=== PATIENT | female | born 1985 | race Hispanic/Latino ===

== ENCOUNTER 2020-11-22 14:48 | Emergency (ER) | payer MEDICAID, OTHER ==
--- OUTSIDE RECORDS SUMMARY | 2020-11-22 14:52 | XMS REPORT | Continuity of Care Document ---
:[address] [facility] t Address [address] [place] [address] Care Team Providers Name Role Phone Durán Attending Clinician Unavailable Payers Payer Name Policy Type Policy Number Effective Date Expiration Date S kiya OTHER-COMMERC [id number] 2020 [facility] s - IALGENERIC 00:00:00 [facility] COMMERCIALxxx [id number] 21-Present Problems This patient has no known problems. Allergies, Adverse Reactions, Alerts This patient has no known allergies or adverse reactions. Social History Social Habit Start Date Stop Date Quantity Comments Source Sex Assigned At [facility] Medications This patient has no known medications. Vital Signs Vital Name Observation Time Observation Value Comments Source Body weight 2020-11-19 09:13:00 45.36 kg [facility] BMI 2020-11-19 09:13:00 23.24 kg/m2 [facility] Body height 2020-11-19 09:13:00 139.7 cm [facility] Procedures This patient has no known procedures. Results This patient has no known results.
--- NOTE | 2020-11-22 15:38 | RAD REPORT ---
EXAM DESCRIPTION: Jairon Single View11/22/2020 3:19 pm CLINICAL HISTORY: Shortness breath COMPARISON: none FINDINGS: The lungs appear clear of acute infiltrate. The heart is mildly to moderately enlarged. U pper lobe vessels are prominent indicative of pulmonary venous hypertension
[2020-11-22 15:42] LABS: Absolute Lymphocytes (CBC) 1.7 K/uL (0.7-4.9); Basophils % 0.9 % (0-1.3); Hematocrit 38.5 % (36.0-45.0); Lymphocytes % 12.1 % (15.3-44.8); MPV 7.3 fL (7.6-11.3); RBC Red Blood Cell Count 4.62 M/uL (3.86-4.86)
[2020-11-22 16:15] LABS: ALT/SGPT 44 U/L (12-78); AST/SGOT 27 U/L (15-37); Albumin 3.3 g/dL (3.4-5.0); Alkaline Phosphatase 96 U/L (45-117); BUN Blood Urea Nitrogen 15 mg/dL (7-18); Bicarbonate 30 mmol/L (21-32); Bilirubin Direct 0.2 mg/dL (0-0.2); Bilirubin Total 0.9 mg/dL (0.2-1.0); Glucose Level 79 mg/dL (74-106); Magnesium 2.2 mg/dL (1.8-2.4); NT PRO-BNP 61989 pg/mL (<125); Potassium 3.5 mmol/L (3.5-5.1); Protein, Total 7.2 g/dL (6.4-8.2); Sodium Level 138 mmol/L (136-145); Troponin (Emerg Dept Use Only) < 0.02 ng/mL (0.0-0.045)
--- NOTE | 2020-11-22 16:59 | ER ---
Nurse's Notes [facility] Name: Rose Marie Kimble Age: 35 yrs Sex: Female : 1985 Arrival Date: 11/22/2020 Time: 14:49 Bed 6 Private MD: Diagnosis: Shortness of breath-pre dialysis Presentation: 11/22 14:50 Chief complaint: EMS states: SHORTNESS OF BREATH BEFORE DILAYSIS. Coronavirus screen: bp At this time, the client does not indicate any symptoms associated with coronavirus-19. Ebola Screen: No symptoms or risks identified at this time. Initial Sepsis Screen: Does the patient meet any 2 criteria? No. Patient's initial sepsis screen is negative. Does the patient have a suspected source of infection? No. Patient's initial sepsis screen is negative. Risk Assessment: Do you want to hurt yourself or someone else? Patient reports no desire to harm self or others. Onset of symptoms was November 22, 2020 at 12:00. 14:50 Method Of Arrival: EMS: [facility] bp 14:50 Acuity: BHAVANA 3 bp Triage Assessment: 14:50 General: Appears in no apparent distress. comfortable, Behavior is calm, cooperative, bp appropriate for age. Pain: Denies pain. EENT: No deficits noted. Neuro: No deficits noted. Cardiovascular: No deficits noted. Respiratory: Reports shortness of breath Onset: The symptoms/episode began/occurred this morning, the patient reports symptoms have resolved. GI: No signs and/or symptoms were reported involving the gastrointestinal system. : No signs and/or symptoms were reported regarding the genitourinary system. Derm: No deficits noted. Musculoskeletal: No deficits noted. Historical: - Allergies: 14:50 No Known Allergies; bp - PMHx: 14:50 CAD; Renal Disease; bp - Immunization history:: Adult Immunizations up to date. - Social history:: Smoking status: Patient denies any tobacco usage or history of. Screenin:50 Abuse screen: Denies threats or abuse. Denies injuries from another. Nutritional bp screening: No deficits noted. Tuberculosis screening: No symptoms or risk factors identified. Fall Risk None identified. Assessment: 14:50 General: SEE TRIAGE NOTE. bp 16:00 Reassessment: ALL CURRENT ORDERS COMPLETED, RESULTS PENDING. Cardiovascular: Rhythm is bp sinus rhythm. Respiratory: Airway is patent Respiratory effort is even, unlabored, Breath sounds are clear bilaterally. 17:28 Reassessment: PT D/C HOME AMBULATORY, DX WITH SOB BEFORE DIALYSIS. bp Vital Signs: 14:50 BP 129 / 81; Pulse 95; Resp 16; Temp 97; Pulse Ox 99% ; bp 16:00 BP 130 / 87; Pulse 84; Resp 20; Pulse Ox 98% ; bp 17:27 BP 134 / 82; Pulse 79; Resp 20; Temp 98; Pulse Ox 97% ; bp ED Course: 14:49 Patient arrived in ED. bp 14:50 Jerry Riggins, RN is Primary Nurse. bp 14:50 Jose Armando Adamson PA is PHCP. cp 14:50 Laureano Brantley MD is Attending Physician. cp 14:50 Arm band placed on. bp 14:50 Patient has correct armband on for positive identification. Bed in low position. Call bp light in reach. Side rails up X2. 15:02 Triage completed. bp 15:19 XRAY Chest (1 view) In Process Unspecified. EDMS 15:33 Magnesium Sent. mh5 15:33 NT PRO-BNP Sent. mh5 15:33 Troponin (Emerg Dept Use Only) Sent. mh5 15:33 Liver (Hepatic) Function Sent. mh5 15:33 CBC with Automated Diff Sent. mh5 15:33 Basic Metabolic Panel Sent. mh5 15:33 Test, Serum Sent. mh5 15:34 Basic Metabolic Panel Sent. mh5 15:34 CBC with Diff Sent. mh5 15:34 LFT's Sent. mh5 15:34 Magnesium Sent. mh5 15:34 NT PRO-BNP Sent. mh5 15:34 Troponin (emerg Dept Use Only) Sent. mh5 15:35 Warm blanket given. Pulse ox on. NIBP on. mh5 15:35 Initial lab(s) drawn, by me, sent to lab. EKG done, by ED staff, reviewed by Laureano Brantley MD COVID swab sent to lab. 17:28 No provider procedures requiring assistance completed. IV discontinued, intact, bp bleeding controlled, No redness/swelling at site. Pressure dressing applied. Administered Medications: No medications were administered Outcome: 16:58 Discharge ordered by . cp 17:28 Discharged to home ambulatory. bp 17:28 Condition: stable 17:28 Discharge instructions given to patient, Instructed on discharge instructions, follow up and referral plans. Demonstrated understanding of instructions, follow-up care. 17:29 Patient left the ED. bp Signatures: Dispatcher [employer] EDMS Jose Armando Adamson PA PA cp Martinez, Maria [facility] Jerry Riggins, RN RN bp
--- NOTE | 2020-11-22 16:59 | EDPHYS ---
Physician Documentation [facility] Name: Rose Marie Kimble Age: 35 yrs Sex: Female : 1985 Arrival Date: 11/22/2020 Time: 14:49 Bed 6 Private MD: ED Physician Laureano Brantley HPI: 11/22 14:50 This 35 yrs old Female presents to ER via Unassigned with complaints of cp Shortness Of Breath. 14:50 The patient has shortness of breath at rest. cp 14:50 Onset: The symptoms/episode began/occurred today, prior to having dialysis. Patient cp unsure of amount of fluid removed but reports shortness of breath improved after dialysis. Associated signs and symptoms: Pertinent positives: chest pain, Pertinent negatives: non-productive cough, productive cough, fever, vomiting. Severity of symptoms: in the emergency department the symptoms have improved markedly. Historical: - Allergies: 14:50 No Known Allergies; bp - PMHx: 14:50 CAD; Renal Disease; bp - Immunization history:: Adult Immunizations up to date. - Social history:: Smoking status: Patient denies any tobacco usage or history of. ROS: 15:00 Constitutional: Negative for body aches, chills, fever, poor PO intake. cp 15:00 Eyes: Negative for injury, pain, redness, and discharge. cp 15:00 ENT: Negative for ear pain, sore throat, difficulty swallowing, difficulty handling cp secretions. 15:00 Cardiovascular: Positive for chest pain, Negative for edema, palpitations. 15:00 Respiratory: Positive for history of shortness of breath, Negative for cough, wheezing. 15:00 Abdomen/GI: Negative for abdominal pain, nausea, vomiting, and diarrhea. 15:00 Back: Negative for pain at rest, pain with movement. 15:00 All other systems are negative. cp Exam: 15:05 Head/Face: Normocephalic, atraumatic. cp 15:05 Constitutional: The patient appears in no acute distress, alert, awake, non-diaphoretic, non-toxic, well developed, well nourished. 15:05 Eyes: Periorbital structures: appear normal, Conjunctiva: normal, no exudate, no injection, Sclera: no appreciated abnormality, Lids and lashes: appear normal, bilaterally. 15:05 ENT: External ear(s): are unremarkable, Nose: is normal, Mouth: Lips: moist, Oral mucosa: moist, Posterior pharynx: Airway: no evidence of obstruction, patent. 15:05 Chest/axilla: Inspection: normal, Palpation: crepitus, is not appreciated, tenderness, that is mild, of the mid-sternal area. 15:05 Cardiovascular: Rate: normal, Rhythm: regular, Edema: is not appreciated, JVD: is not appreciated. 15:05 Respiratory: the patient does not display signs of respiratory distress, Respirations: normal, no use of accessory muscles, no retractions, labored breathing, is not present, Breath sounds: are clear throughout, no decreased breath sounds, no stridor, no wheezing. 15:05 Abdomen/GI: Exam negative for discomfort, distension, guarding, Inspection: abdomen appears normal. 15:05 Neuro: Orientation: to person, place \T\ time. Mentation: is normal. Vital Signs: 14:50 BP 129 / 81; Pulse 95; Resp 16; Temp 97; Pulse Ox 99% ; bp 16:00 BP 130 / 87; Pulse 84; Resp 20; Pulse Ox 98% ; bp 17:27 BP 134 / 82; Pulse 79; Resp 20; Temp 98; Pulse Ox 97% ; bp MDM: 14:55 Patient medically screened. cp 15:00 Differential diagnosis: CHF exacerbation, Myocardial Infarction pneumonia, Pneumothorax cp pulmonary edema, Pulmonary Embolism Unstable Angina. 16:55 Data reviewed: vital signs, nurses notes, lab test result(s), EKG, radiologic studies, cp plain films. 16:55 Test interpretation: by ED physician or midlevel provider: ECG. Counseling: I had a cp detailed discussion with the patient and/or guardian regarding: the historical points, exam findings, and any diagnostic results supporting the discharge/admit diagnosis, lab results, radiology results, to return to the emergency department if symptoms worsen or persist or if there are any questions or concerns that arise at home. 11/22 14:53 Order name: Basic Metabolic Panel cp 11/22 14:53 Order name: CBC with Diff cp 11/22 14:53 Order name: LFT's cp 11/22 14:53 Order name: Magnesium cp 11/22 14:53 Order name: NT PRO-BNP cp 11/22 14:53 Order name: Troponin (emerg Dept Use Only) cp 11/22 14:53 Order name: Test, Serum; Complete Time: 16:01 cp 11/22 14:54 Order name: Basic Metabolic Panel; Complete Time: 16:51 EDMS 11/22 16:51 Interpretation: Normal except: CRE 2.96; GFR 18. cp 11/22 14:54 Order name: CBC with Automated Diff; Complete Time: 16:01 EDMS 11/22 16:01 Interpretation: Normal except: WBC 13.90; RDW 15.3; MPV 7.3; SIERRA% 81.1; LYM% 12.1; NEUT cp A 11.3. 11/22 14:54 Order name: Liver (Hepatic) Function; Complete Time: 16:51 EDMS 11/22 16:51 Interpretation: Normal except: ALB 3.3; GLOB 3.9; A/G 0.8. cp 11/22 14:54 Order name: Magnesium; Complete Time: 16:51 EDMS 11/22 14:54 Order name: NT PRO-BNP; Complete Time: 16:51 EDMS 11/22 16:52 Interpretation: Abnormal: NT PRO-BNP [id number]. cp 11/22 14:54 Order name: Troponin (Emerg Dept Use Only); Complete Time: 16:51 EDMS 11/22 16:52 Interpretation: TROPED < 0.02; Reviewed. cp 11/22 14:53 Order name: XRAY Chest (1 view); Complete Time: 16:01 cp 11/22 16:02 Interpretation: Report reviewed. cp 11/22 14:53 Order name: EKG; Complete Time: 14:55 cp 11/22 14:53 Order name: Cardiac monitoring; Complete Time: 15:17 cp 11/22 14:53 Order name: EKG - Nurse/Tech; Complete Time: 15:34 cp 11/22 14:53 Order name: IV Saline Lock; Complete Time: 15:33 cp 11/22 14:53 Order name: Labs collected and sent; Complete Time: 15:33 cp 11/22 14:53 Order name: O2 Per Protocol; Complete Time: 15:29 cp 11/22 14:53 Order name: O2 Sat Monitoring; Complete Time: 15:29 cp 11/22 16:09 Order name: SARS-COV-2 RT PCR; Complete Time: 16:51 EDMS Administered Medications: No medications were administered Disposition: 11/22/20 16:58 Discharged to Home. Impression: Shortness of breath - pre dialysis. - Condition is Stable. - Discharge Instructions: Shortness of Breath, Dialysis, Dialysis Diet. - Medication Reconciliation Form, Thank You Letter, Antibiotic Education, Prescription Opioid Use form. - Follow up: Private Physician; When: 1 - 2 days; Reason: Recheck today's complaints. - Problem is new. - Symptoms have improved. Addendum: 11/23/2020 18:43 Co-signature as Attending Physician, Laureano Brantley MD. m a2 Signatures: Dispatcher [employer] EDNC Jose Armando Adamson PA PA cp Peltier, Brian, RN RN Laureano Cerrato MD MD ma2 Corrections: (The following items were deleted from the chart) 11/22 15:20 14:55 CORONAVIRUS+.LIZZ ordered. EDNC EDMS 17:29 16:58 11/22/2020 16:58 Discharged to Home. Impression: Shortness of breath - pre bp dialysis. Condition is Stable. Forms are Medication Reconciliation Form, Thank You Letter, Antibiotic Education, Prescription Opioid Use. Follow up: Private Physician; When: 1 - 2 days; Reason: Recheck today's complaints. Problem is new. Symptoms have improved. cp
[2020-11-22 20:12] VITALS: BP 134/82; TEMP 98; O2SAT 97
== END 2020-11-22 17:29 | disposition home or self-care (01) ==
LOC: ER 14:48
DX: R06.02 Shortness of breath (principal); Z20.822 Contact with and (suspected) exposure to COVID-19; I25.10 Atherosclerotic heart disease of native coronary artery without angina pectoris; N18.6 End stage renal disease; Z99.2 Dependence on renal dialysis
CPT/HCPCS: 85025; 80048; 36415; 83735; 84703; 80076; 84484; 83880; 71045; U0003; 99284

== ENCOUNTER 2020-12-02 11:16 | Inpatient (IN) | payer MEDICAID ==
--- OUTSIDE RECORDS SUMMARY | 2020-12-02 11:19 | XMS REPORT | Continuity of Care Document ---
:1985 Author Organization [facility] t Address [address] [place] [address] Care Team Providers Name Role Phone 1, Infusion Nurse Attending Clinician Unavailable Durán Attending Clinician Unavailable Payers Payer Name Policy Type Policy Number Effective Date Expiration Date S kiya OTHER-COMMERC [id number] 2020 [facility] s - IALGENERIC 00:00:00 [facility] COMMERCIALxxx [id number]/ 21-Present Problems This patient has no known problems. Allergies, Adverse Reactions, Alerts This patient has no known allergies or adverse reactions. Social History Social Habit Start Date Stop Date Quantity Comments Source Sex Assigned At [facility] Medications This patient has no known medications. Vital Signs Vital Name Observation Time Observation Value Comments Source BMI 2020-11-19 09:13:00 23.24 kg/m2 [facility] Body height 2020-11-19 09:13:00 139.7 cm [facility] Body weight 2020-11-19 09:13:00 45.36 kg [facility] Procedures This patient has no known procedures. Encounters Start End Encounter Admission Attending Care Care Encounter Source Date/Time Date/Time Type Type Clinicians Facility Department ID 2020-11-28 2020-11-28 Nurse Sindhu Alonzo [facility] [id number] 14:42:00 14:57:00 Visit Infusion [place] [id number] Nurse Jones [id number] Surgical [id number] Center 053 Results This patient has no known results.
--- NOTE | 2020-12-02 11:51 | RAD REPORT ---
EXAM DESCRIPTION: RAD - Chest Single View - 12/02/2020 11:45 am CLINICAL HISTORY: Dyspnea;Cough Chest pain. COMPARISON: Chest Single View dated 11/22/2020 FINDINGS: Portable technique limits examination quality. Moderate bilateral pulmonary opacities are present which may represent pulmonary edema or be related to infection. The heart is moderately enlarged. Right-sided dialysis catheter its tip in right atrium . IMPRESSION: Moderate volume overload/CHF pattern is suspected.
[2020-12-02 12:09] LABS: Absolute Lymphocytes (CBC) 0.9 K/uL (0.7-4.9); Basophils % 0.8 % (0-1.3); Hematocrit 40.9 % (36.0-45.0); MPV 8.6 fL (7.6-11.3); RBC Red Blood Cell Count 4.79 M/uL (3.86-4.86)
[2020-12-02 12:24] LABS: Potassium 5.7 mmol/L (3.5-5.1)
[2020-12-02] MEDS ORDERED: ACETAMINOPHEN 500 MG TAB ONE (12:33)
[2020-12-02 12:49] LABS: SARS-COV-2 RT PCR NEGATIVE (NEGATIVE)
[2020-12-02] MEDS ORDERED: FUROSEMIDE 40 MG/4 ML VIAL ONE (12:54)
[2020-12-02] MEDS ORDERED: FUROSEMIDE 20 MG/ 2ML VIAL ONE (12:54)
[2020-12-02 13:03] LABS: Blood Morphology Comment NOT SEEN (NOT SEEN); Platelet Estimate ADEQ; Platelets, Giant PRESENT; White Blood Cell Scan OK (OK)
[2020-12-02] MEDS ORDERED: levoFLOXacin 750 MG TAB PO ONE (13:53)
--- NOTE | 2020-12-02 13:54 | P.HP ---
Certification for Inpatient Patient admitted to: Observation With expected LOS: <2 Midnights Practitioner: I am a practitioner with admitting privileges, knowledge of patient current condition, hospital course, and medical plan of care. Services: Services provided to patient in accordance with Admission requirements found in Title 42 Section 412.3 of the Code of Federal Regulations Patient History Date of Service: 12/02/20 Reason for admission: hypoxic respiratory failure History of Present Illness: 35-year-old female, PMH: ESRD on HD (T-R-S) s/p renal transplant, DM 2-insulin dependent, HTN who presents to ED from dialysis center due to a shortness of breath and hypoxia at 82% on room air. Patient states this is not typical for her. This is the 2nd episode. 1st episode was approximately 2 weeks ago, but oxygenation improved after dialysis and was noted to have SpO2 100% on arrival to the ED at that time. She denies any swelling in her legs. She reports feeling like a Ball is in the lower left part of her chest/stomach area does not allowing her to take deep breaths. She also reports some mild cough that began yesterday. She denies missing any of her dialysis recently. Denies any fevers/chills, no nausea/vomiting, no diarrhea. - Past Medical/Surgical History -: ESRD on HD -: s/p renal transplant -: Insulin dependent DM2 -: HTN -: Renal transplant - Family History Mother -: Diabetes - Social History Smoking Status: Never smoker Alcohol use: No Place of Residence: Home Review of Systems 10-point ROS is otherwise unremarkable Physical Examination - Studies Laboratory Data (last 24 hrs) 12/02/20 11:48: Sodium 140, Potassium 5.7 H*, BUN 70 H D, Creatinine 9.95 H* D, Glucose 75 12/02/20 11:48: WBC 14.40 H, Hgb 12.8, Hct 40.9, Plt Count 375 D Assessment and Plan - Advance Directives Does patient have a Living Will: No Does patient have a Durable POA for Healthcare: No Physician Review Additional Text: Physical exam General: NAD, resting comfortably on stretcher HEENT: Normal conjunctiva, sclera anicteric Pulmonary: Diminished breath sounds bilaterally at bases with crackles. Nonlabored on 3L NC CV: RRR, no murmur, rub, gallop, no edema Abd: soft, NTND, normoactive bowel sounds Ext: no edema, no rash, no lesions Neuro: AAOx3, b/l str 5/5 in upper/lower extremities Problem List Acute hypoxemic respiratory failure secondary to volume overload Possible acute CHF versus volume overload in the setting of ESRD ESRD on HD (T-R-S), s/p renal transplant DM 2, insulin dependent. HTN -CXR in the ED consistent with volume overload pattern, possible pneumonia unclear -mild leukocytosis, reportedly with a cough -hypoxia possibly due to volume overload versus pneumonia, COVID negative -cover empirically for community-acquired pneumonia, obtain CT chest to further evaluate, pro calcitonin ordered as well -patient reports is feeling of people/pressure in the bottom left chest/upper abdomen area, will trend troponin -insulin sliding scale, -obtain home medications and resume as appropriate -nephrology-Dr. Benson, consulted, patient for hemodialysis today -echocardiogram ordered VTE: heparin Code: full Dispo: anticipate dc home in ~24-48hrs pending evaluation and improvement of symptoms Time Spent Managing Pts Care (In Minutes): 60
--- NOTE | 2020-12-02 14:54 | RAD REPORT ---
EXAM DESCRIPTION: CT - Thorax Wo Con - 12/02/2020 2:32 pm CLINICAL HISTORY: eval b/l opacities - infectious vs edema COMPARISON: No comparisons TECHNIQUE: Axial 5 mm thick images of the chest were obtained without IV contrast. All CT scans are performed using dose optimization technique as appropriate and may include automated exposure control or mA/KV adjustment according to patient size. FINDINGS: Extensive ground-glass airspace opacification is present throughout both lower lobes, righ t middle lobe and the lingula of the left upper lobe. Only minimal ground-glass opacities are present in the upper lobes. A 7 mm nodular focus of the right upper lobe (image 22/55) is most likely part o f the same process rather than a nodule. There is a 5 mm left upper lobe nodule (image 11/55) the cou ld be a true nodule or focus of alveolar acute opacification. Small bilateral pleural effusions are p resent. Minimal fluid along the major fissures. No pneumothorax. A few nonspecific mediastinal and hilar masses are present. There is edema of the mediastinal fat. Di alysis catheter is in place extending into the right atrium. No gross aortic or pulmonary artery find ing suspected. Cardiomegaly is present. No pericardial effusion. No chest wall mass or abnormal axillary lymphadenopathy. IMPRESSION: Extensive airspace opacification in the lung yee along with small bilateral pleural e ffusions and a mild cardiomegaly. Findings most likely represent edema from volume overload. Two small upper lung field nodular foci detailed above are likely part of the same volume overload pr ocess. Follow-up CT can be performed when the patient has fully recovered from volume overload status . Right-sided dialysis catheter is in place with the catheter tips positioned in the right atrium.
--- NOTE | 2020-12-02 16:21 | EDPHYS ---
Physician Documentation [facility] Name: Rose Marie Kimble Age: 35 yrs Sex: Female : 1985 Arrival Date: 12/02/2020 Time: 11:19 Bed 5 Private MD: ED Physician Kofi Smart HPI: 12/02 12:51 This 35 yrs old Female presents to ER via EMS with complaints of Shortness Of kb Breath. 12:51 The patient has shortness of breath at rest. Onset: The symptoms/episode began/occurred kb yesterday, and became worse. Severity of symptoms: At their worst the symptoms were moderate in the emergency department the symptoms are unchanged. The patient has experienced similar episodes in the past, several times. The patient has not recently seen a physician. 12:53 Duration: The symptoms are continuous. The patient's shortness of breath is aggravated kb by exertion, is alleviated by application of supplemental oxygen. Associated signs and symptoms: Pertinent positives: non-productive cough, Pertinent negatives: fever. Pt reports cough that started yesterday, shortness of breath that started this morning. Denies fever. Did not received dialysis today as scheduled. 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 - Social history:: Smoking status: unknown. ROS: 12:57 Constitutional: Negative for fever, chills, and weight loss, Cardiovascular: Negative kb for chest pain, palpitations, and edema, Abdomen/GI: Negative for abdominal pain, nausea, vomiting, diarrhea, and constipation, MS/Extremity: Negative for injury and deformity, Skin: Negative for injury, rash, and discoloration, Neuro: Negative for headache, weakness, numbness, tingling, and seizure. 12:57 Respiratory: Positive for cough, dyspnea on exertion, shortness of breath. Exam: 12:57 Constitutional: This is a well developed, well nourished patient who is awake, alert, kb and in no acute distress. Head/Face: Normocephalic, atraumatic. Cardiovascular: Regular rate and rhythm with a normal S1 and S2. No gallops, murmurs, or rubs. No pulse deficits. Abdomen/GI: Soft, non-tender. No distention Skin: Warm, dry with normal turgor. Normal color. MS/ Extremity: Pulses equal, no cyanosis. Neurovascular intact. Full, normal range of motion. Neuro: Awake and alert, GCS 15, oriented to person, place, time, and situation. Moves all extremities. Normal gait. 12:57 Respiratory: moderate respiratory distress is noted, Respirations: labored breathing, Breath sounds: decreased breath sounds, that are mild, are located in both bases, rhonchi, that are mild, are located in both bases. 13:00 ECG was reviewed by the Attending Physician. kb Vital Signs: 11:25 BP 164 / 121; Pulse 91; Resp 23; Temp 98.8; Pulse Ox 100% 2 lpm ; Weight 44.45 kg; jl7 Height 4 ft. 7 in. (139.70 cm); Pain 0/10; 12:52 BP 191 / 115; Pulse 84; Resp 21 S; Pulse Ox 100% on 4 lpm NC; jd3 13:08 BP 189 / 109; Pulse 86; Resp 24; Pulse Ox 100% on 4 lpm NC; jl7 14:12 BP 178 / 108; Pulse 87; Resp 23 S; Pulse Ox 100% on 4 lpm NC; jd3 16:18 BP 167 / 96; Pulse 82; Resp 22 S; Pulse Ox 100% on 3 lpm NC; jd3 11:25 Body Mass Index 22.78 (44.45 kg, 139.70 cm) jl7 MDM: 11:23 Patient medically screened. kb 12:49 Data reviewed: vital signs, nurses notes. Data interpreted: Pulse oximetry: on room air kb is 84 %. Interpretation: hypoxia. Plan: O2 by NC applied. Counseling: I had a detailed discussion with the patient and/or guardian regarding: the historical points, exam findings, and any diagnostic results supporting the discharge/admit diagnosis, lab results, radiology results, the need for further work-up and treatment in the hospital. ED course: oxygen increased to 98% with 4l o2 via nc. 12:54 Physician consultation: Rob Guerrero MD was contacted at 12:55, regarding admission, kb to the telemetry unit. patient's condition, and will see patient in ED, shortly. 12:55 ED course: Dr Benson consulted. She will set up for inpatient dialysis today. kb 12/02 11:25 Order name: CBC with Diff; Complete Time: 13:07 kb 12/02 11:25 Order name: Basic Metabolic Panel; Complete Time: 12:26 kb 12/02 12:20 Order name: CBC Smear Scan; Complete Time: 13:07 EDMS 12/02 12:49 Order name: COVID-19/FLU A+B; Complete Time: 12:58 EDMS 12/02 11:25 Order name: Chest Single View XRAY; Complete Time: 11:56 kb 12/02 13:52 Order name: NT PRO-BNP EDRI 12/02 13:52 Order name: Blood Culture EDRI 12/02 13:52 Order name: C-Reactive Protein; Complete Time: 14:49 EDMS 12/02 13:52 Order name: Procalcitonin; Complete Time: 16:15 EDRI 12/02 14:55 Order name: CT; Complete Time: 14:57 EDRI 12/02 11:25 Order name: IV Start; Complete Time: 11:52 kb 12/02 12:29 Order name: EKG; Complete Time: 12:30 kb 12/02 12:29 Order name: EKG - Nurse/Tech; Complete Time: 12:51 kb 12/02 13:50 Order name: CONS Physician Consult EDMS EC:00 Rate is 85 beats/min. Rhythm is regular. QRS [place] is Normal. GA interval is normal at kb 162 msec. QRS interval is normal at 68 msec. QT interval is normal at 376 msec. Administered Medications: 12:20 Drug: Tylenol 1000 mg Route: PO; jd3 13:00 Follow up: Response: No adverse reaction jd3 12:27 CANCELLED (Physician Discretion): Potassium Chloride 40 mEq PO once kb 12:51 Drug: Lasix (furosemide) 60 mg Route: IVP; Site: right antecubital; jd3 13:50 Follow up: Response: No adverse reaction jd3 Disposition: 17:46 Co-signature as Attending Physician, Kofi Smart MD I agree with the assessment and kdr plan of care. Disposition: 12/02/20 12:59 Hospitalization ordered by Rob Guerrero for Observation. Preliminary diagnosis are Pulmonary edema - volume overload, Hyperkalemia. - Bed requested for Telemetry/MedSurg (observation). - Status is Observation. jd3 - Condition is Fair. - Problem is an acute exacerbation. - Symptoms are unchanged. Signatures: Dispatcher [employer] EDMS Karen Whitehead, GO-C ITEM REPAIR MANAGER-Xin Hwang, RN RN Kofi Monroy MD MD [facility] Belen Delgado RN RN jl7 Seven Ellsworth RN RN jd3 Corrections: (The following items were deleted from the chart) 12:02 11:25 CORONAVIRUS+MR.LAB.BRZ ordered. EDMS EDMS 12:02 11:25 Influenza Screen (A \T\ B)+BA.LAB.BRZ ordered. EDRI EDMS 12:27 12:26 Potassium Chloride 40 mEq PO once ordered. kb kb 15:05 12:59 Hospitalization Ordered by Rob Guerrero MD for Observation. Preliminary dw diagnosis is Pulmonary edema - volume overload; Hyperkalemia. Bed requested for Telemetry/MedSurg (observation). Status is Observation. Condition is Fair. Problem is an acute exacerbation. Symptoms are unchanged. kb 16:20 15:05 12/02/2020 12:59 Hospitalization Ordered by Rob Guerrero MD for Observation. jd3 Preliminary diagnosis is Pulmonary edema - volume overload; Hyperkalemia. Bed requested for Telemetry/MedSurg (observation). Status is Observation. Condition is Fair. Problem is an acute exacerbation. Symptoms are unchanged. dw
--- NOTE | 2020-12-02 16:21 | ER ---
Nurse's Notes [facility] Name: Rose Marie Kimble Age: 35 yrs Sex: Female : 1985 Arrival Date: 12/02/2020 Time: 11:19 Bed 5 Private MD: Diagnosis: Pulmonary edema-volume overload;Hyperkalemia Presentation: 12/02 11:25 Chief complaint: EMS states: Toned out to [facility] for SOB, started today, dry cough jl7 since yesterday, last dialysis was Tuesday, no dialysis today. Pt reports BP is baseline prior to dialysis. Coronavirus screen: Client denies travel out of the [place] in the last 14 days. cough unrelated to allergies, shortness of breath, Client presents with at least one sign or symptom that may indicate coronavirus-19. Standard/surgical mask placed on the client. Provider contacted for isolation considerations. Ebola Screen: No symptoms or risks identified at this time. Initial Sepsis Screen: Does the patient meet any 2 criteria? RR > 20 per min. HR > 90 bpm. Does the patient have a suspected source of infection? No. Patient's initial sepsis screen is negative. Risk Assessment: Do you want to hurt yourself or someone else? Patient reports no desire to harm self or others. Onset of symptoms was December 02, 2020. Care prior to arrival: None. Transition of care: patient was received from another setting of care (ambulatory specialty care practice), [facility]. 11:25 Method Of Arrival: EMS: [facility] jl7 11:25 Acuity: BHAVANA 3 jl7 Triage Assessment: 11:55 Respiratory: Onset: The symptoms/episode began/occurred gradually, the patient has jd3 moderate shortness of breath. 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 N/A - Depo-provera jd3 Historical: - Allergies: 11:53 No Known Allergies; jd3 11:54 No Known Allergies; jl7 - Home Meds: 12:22 amlodipine 10 mg tab 1 tab once daily [Active]; gabapentin 100 mg oral cap [Active]; jl7 Auryxia oral oral [Active]; Kayexalate Oral powd 60 mL 2 times per day [Active]; Lantus Sub-Q [Active]; Lasix Oral [Active]; Sensipar oral oral [Active]; metoprolol tartrate 100 mg Oral tab [Active]; clonidine HCl 0.1 mg Oral tab [Active]; - PMHx: 11:53 CAD; Renal Disease; jd3 11:54 CAD; Renal Disease; Dialysis; T-T-S; Diabetes - IDDM; jl7 12:22 hyperparathyroidism; jl7 - Immunization history:: Adult Immunizations up to date. - Social history:: Smoking status: unknown. Screenin:55 Abuse screen: Denies threats or abuse. Nutritional screening: No deficits noted. jd3 Tuberculosis screening: No symptoms or risk factors identified. Fall Risk Ambulatory Aid- None/Bed Rest/Nurse Assist (0 pts). Gait- Normal/Bed Rest/Wheelchair (0 pts) Mental Status- Oriented to own ability (0 pts). Total Guy Fall Scale indicates No Risk (0-24 pts). Assessment: 11:54 General: Appears in no apparent distress. comfortable, Behavior is calm, cooperative, jd3 appropriate for age. Pain: Complains of pain in head Quality of pain is described as aching. Neuro: Level of Consciousness is awake, alert, obeys commands, Oriented to person, place, time, situation. Cardiovascular: Denies chest pain, Capillary refill < 3 seconds Patient's skin is warm and dry. Rhythm is regular. Respiratory: Reports shortness of breath at rest cough that is non-productive, persistent Airway is patent Respiratory effort is even, unlabored, Respiratory pattern is symmetrical, tachypnea Breath sounds are diminished bilaterally. GI: No signs and/or symptoms were reported involving the gastrointestinal system. : No signs and/or symptoms were reported regarding the genitourinary system. EENT: No signs and/or symptoms were reported regarding the EENT system. Derm: Skin is intact, Skin is dry, Skin is normal, Skin temperature is warm. Musculoskeletal: Circulation, motion, and sensation intact. Range of motion: intact in all extremities. 12:52 Reassessment: Patient appears in no apparent distress at this time. Patient and/or jd3 family updated on plan of care and expected duration. Pain level reassessed. Patient is alert, oriented x 3, equal unlabored respirations, skin warm/dry/pink. Patient states feeling better. 14:12 Reassessment: Patient appears in no apparent distress at this time. Patient and/or jd3 family updated on plan of care and expected duration. Pain level reassessed. Patient is alert, oriented x 3, equal unlabored respirations, skin warm/dry/pink. awaiting admission. 16:03 Reassessment: Pt ambulated to bathroom with steady gate. jl7 16:17 Reassessment: Patient appears in no apparent distress at this time. Patient and/or jd3 family updated on plan of care and expected duration. Pain level reassessed. Patient is alert, oriented x 3, equal unlabored respirations, skin warm/dry/pink. report given to Leticia ASKEW. report given to dialysis nurse. pt to dialysis with printer technician. pt to floor after dialysis. Patient states feeling better. Vital Signs: 11:25 BP 164 / 121; Pulse 91; Resp 23; Temp 98.8; Pulse Ox 100% 2 lpm ; Weight 44.45 kg; jl7 Height 4 ft. 7 in. (139.70 cm); Pain 0/10; 12:52 BP 191 / 115; Pulse 84; Resp 21 S; Pulse Ox 100% on 4 lpm NC; jd3 13:08 BP 189 / 109; Pulse 86; Resp 24; Pulse Ox 100% on 4 lpm NC; jl7 14:12 BP 178 / 108; Pulse 87; Resp 23 S; Pulse Ox 100% on 4 lpm NC; jd3 16:18 BP 167 / 96; Pulse 82; Resp 22 S; Pulse Ox 100% on 3 lpm NC; jd3 11:25 Body Mass Index 22.78 (44.45 kg, 139.70 cm) jl7 ED Course: 11:19 Patient arrived in ED. aa5 11:23 Karen Whitehead FNP-C [facility]. kb 11:23 Kofi Smart MD is Attending Physician. kb 11:28 Triage completed. jl7 11:35 Seven Ellsworth RN is Primary Nurse. jd3 11:44 Chest Single View XRAY In Process Unspecified. EDMS 11:53 Arm band placed on. jd3 11:54 Inserted saline lock: 20 gauge in right antecubital area, using aseptic technique. jd3 Blood collected. 11:55 Patient has correct armband on for positive identification. Placed in gown. Bed in low jd3 position. Call light in reach. Side rails up X2. phototypesetting equipment monitor on. Pulse ox on. NIBP on. 12:59 Guerrero, Juvencio, MD is Hospitalizing Provider. kb 12:59 Rob Guerrero MD is Hospitalizing Provider. kb 16:18 No provider procedures requiring assistance completed. Patient admitted, IV remains in jd3 place. Administered Medications: 12:20 Drug: Tylenol 1000 mg Route: PO; jd3 13:00 Follow up: Response: No adverse reaction jd3 12:27 CANCELLED (Physician Discretion): Potassium Chloride 40 mEq PO once kb 12:51 Drug: Lasix (furosemide) 60 mg Route: IVP; Site: right antecubital; jd3 13:50 Follow up: Response: No adverse reaction jd3 Outcome: 12:59 Decision to Hospitalize by Provider. kb 16:19 Admitted to accompanied by tech, via wheelchair, with oxygen, with chart, Report called jd3 to pt to dialysis. then from dialysis to 428 16:19 Condition: stable 16:19 Instructed on the need for admit, Demonstrated understanding of instructions. 16:20 Patient left the ED. jd3 Signatures: Dispatcher [employer] EDMS Karen Whitehead, ALLIANCES CONSULTANT-C ALLIANCES CONSULTANT-Michelle Rouse, RN RN aa5 Belen Delgado RN RN jl7 Seven Ellsworth RN RN jd3
[2020-12-02] MEDS: INSULIN -REGULAR HUMAN 50 UNIT/0.5 ML ML SQ SCH ×2 (16:56→21:00)
[2020-12-02] MEDS: HEPARIN 5000 UNIT/ML 1 ML VIAL SQ SCH (17:00)
[2020-12-02] MEDS ORDERED: CETIRIZINE HCL 5 MG TABLET PO PRN ×2 (22:56→23:00)
[2020-12-02] MEDS ORDERED: GABAPENTIN 100 MG CAP PO PRN (23:00)
[2020-12-02] MEDS ORDERED: ACETAMINOPHEN 500 MG TAB PO PRN (23:01)
[2020-12-02] MEDS ORDERED: D50W 25 GM/50 ML SYRINGE IV PRN (23:02)
[2020-12-02] MEDS ORDERED: GLUCAGON 1 MG/VIAL IM PRN (23:02)
[2020-12-03 01:07] VITALS: BMI 21.4
[2020-12-03] MEDS: HEPARIN 5000 UNIT/ML 1 ML VIAL SQ SCH ×3 (01:57→16:34)
[2020-12-03 04:08] LABS: Absolute Lymphocytes (CBC) 1.5 K/uL (0.7-4.9); Hematocrit 35.9 % (36.0-45.0); Lymphocytes % 16.5 % (15.3-44.8); MPV 8.7 fL (7.6-11.3); RBC Red Blood Cell Count 4.22 M/uL (3.86-4.86)
[2020-12-03 05:03] LABS: ALT/SGPT 30 U/L (12-78); AST/SGOT 13 U/L (15-37); Albumin 2.9 g/dL (3.4-5.0); Alkaline Phosphatase 90 U/L (45-117); BUN Blood Urea Nitrogen 42 mg/dL (7-18); Bicarbonate 27 mmol/L (21-32); Bilirubin Total 0.7 mg/dL (0.2-1.0); Glucose Level 98 mg/dL (74-106); Magnesium 2.3 mg/dL (1.8-2.4); Potassium 4.4 mmol/L (3.5-5.1); Protein, Total 6.2 g/dL (6.4-8.2); Sodium Level 145 mmol/L (136-145); Troponin I < 0.02 ng/mL (0.0-0.045)
--- NOTE | 2020-12-03 06:43 | RAD REPORT ---
EXAM DESCRIPTION: RAD - Chest Single View - 12/03/2020 6:34 am CLINICAL HISTORY: hypoxia, fluid overload COMPARISON: December 02November 22 TECHNIQUE: AP portable chest image was obtained 12/03/2020 6:34 am . FINDINGS: Pronounced clearing of the interstitial and alveolar failure or volume overload lung paren chymal findings. Lung yee have an appearance similar to the baseline study of November 22. Cardiomegaly is still present but improved. Vasculature has diminished in prominence. Right-sided do uble-lumen dialysis catheter in place. Catheter tips remain in the right atrium. No measurable pleural effusion and no pneumothorax. No acute bony abnormality seen. No acute aortic findings suspected. IMPRESSION: Marked improvement in the CHF/ volume overload pattern since December 02.
[2020-12-03] MEDS: INSULIN -REGULAR HUMAN 50 UNIT/0.5 ML ML SQ SCH ×3 (07:30→16:30)
[2020-12-03] MEDS: SEVELAMER CARBONATE 800 MG TABLET PO SCH ×3 (07:58→16:38)
[2020-12-03] MEDS: FERROUS SULFATE 325 MG TAB PO SCH ×3 (07:59→16:34)
[2020-12-03] MEDS: FERRIC CITRATE 210 MG PO SCH ×2 (07:59→13:37)
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
[2020-12-03] MEDS ORDERED: cloNIDine HCL 0.1 MG TAB PO SCH (09:00)
[2020-12-03] MEDS ORDERED: MYCOPHENOLATE MOFETIL 250 MG PO SCH (09:00)
[2020-12-03] MEDS ORDERED: CETIRIZINE HCL 5 MG TABLET PO SCH (09:00)
[2020-12-03] MEDS ORDERED: METOPROLOL XL 100 MG TAB PO SCH (09:00)
[2020-12-03] MEDS ORDERED: levoFLOXacin 250 MG TAB PO SCH (09:00)
[2020-12-03] MEDS ORDERED: CLOBETASOL 0.05 % CREAM 15GM TOP SCH (09:00)
[2020-12-03] MEDS ORDERED: predniSONE 5 MG TAB PO SCH (09:00)
[2020-12-03] MEDS ORDERED: CINACALCET HCL 30 MG TAB PO SCH (09:00)
[2020-12-03] MEDS ORDERED: FUROSEMIDE 20 MG TABLET PO SCH (09:00)
[2020-12-03] MEDS ORDERED: AMLODIPINE 10 MG TAB PO SCH (09:00)
[2020-12-03] MEDS ORDERED: PNEUMOCOCCAL VACCINE 0.5 ML IMVAC ONE (10:00)
[2020-12-03] MEDS ORDERED: D50W 25 GM/50 ML VIAL IV PRN (16:00)
--- NOTE | 2020-12-03 16:34 | P.DS ---
Admission Date: 12/02/20 Discharge Date: 12/03/20 Disposition: ROUTINE DISCHARGE Discharge Condition: GOOD Reason for Admission: hypoxic respiratory failure Consultations: Nephrology - Dr. Benson Procedures: CXR (12/02): Moderate bilateral pulmonary opacities are present which may represent pulmonary edema or be related to infection. The heart is moderately enlarged. Right-sided dialysis catheter its tip in right atrium. CT Chest (12/02): Extensive airspace opacification in the lung yee along with small bilateral pleural effusions and a mild cardiomegaly. Findings most likely represent edema from volume overload. Two small upper lung field nodular foci detailed above are likely part of the same volume overload process. Follow-up CT can be performed when the patient has fully recovered from volume overload status. Right-sided dialysis catheter is in place with the catheter tips positioned in the right atrium. CXR (12/03): Marked improvement in the CHF/ volume overload pattern since December 02. Problem List Acute hypoxemic respiratory failure secondary to volume overload Possible acute CHF versus volume overload in the setting of ESRD ESRD on HD (T-R-S), s/p renal transplant DM 2, insulin dependent. HTN Brief History of Present Illness: 35-year-old female, PMH: ESRD on HD (T-R-S) s/p renal transplant, DM 2-insulin dependent, HTN who presents to ED from dialysis center due to a shortness of breath and hypoxia at 82% on room air. Patient states this is not typical for h er. This is the 2nd episode. 1st episode was approximately 2 weeks ago, but oxygenation improved after dialysis and was noted to have SpO2 100% on arrival to the ED at that time. She denies any swelling in her legs. She reports feeling like a Ball is in the lower left part of her chest/stomach area does not allowing her to take deep breaths. She also reports some mild cough that began yesterday. She denies missing any of her dialysis recently. Denies any fevers/chills, no nausea/vomiting, no diarrhea. Hospital Course: Patient significantly improved after dialysis. She still had some slight sensation of congestion in her chest and underwent a 2nd round of dialysis. She was breathing comfortably on room air, felt much better, and was discharged home. She was hypertensive and clonidine 0.1mg BID was added to her regimen, with a prescription on discharge as well. She was empirically covered for community acquired pneumonia with levaquin, she had mild leukocytosis and elevated procalcitonin. She was discharged to complete 7 additional days of levaquin. She will resume dialysis as previously scheduled tomorrow. An echocardiogram was obtained on 12/03 but the results were not back prior to discharge. She was recommended to follow up with her physician to review results. Vital Signs/Physical Exam: Physical exam General: NAD, resting comfortably HEENT: Normal conjunctiva, sclera anicteric Pulmonary: clear to auscultation bilaterally, nonlabored on room air CV: RRR, no murmur, rub, gallop, no edema Abd: soft, NTND, normoactive bowel sounds Ext: no edema, no rash, no lesions Neuro: AAOx3, b/l str 5/5 in upper/lower extremities Temp Pulse Resp BP Pulse Ox 98.0 F 92 H 16 136/88 97 12/03/20 04:00 12/03/20 10:20 12/03/20 04:00 12/03/20 10:20 12/03/20 04:00 Laboratory Data at Discharge: WBC 9.10 K/uL (4.3-10.9) D 12/03/20 03:16 Hgb 11.5 g/dL (12.0-15.0) L 12/03/20 03:16 Hct 35.9 % (36.0-45.0) L 12/03/20 03:16 Plt Count 301 K/uL (152-406) 12/03/20 03:16 Sodium 145 mmol/L (136-145) 12/03/20 03:16 Potassium 4.4 mmol/L (3.5-5.1) 12/03/20 03:16 BUN 42 mg/dL (7-18) H D 12/03/20 03:16 Creatinine 6.14 mg/dL (0.55-1.3) H* D 12/03/20 03:16 Glucose 98 mg/dL (74-106) 12/03/20 03:16 Magnesium 2.3 mg/dL (1.8-2.4) 12/03/20 03:16 Total Bilirubin 0.7 mg/dL (0.2-1.0) 12/03/20 03:16 AST 13 U/L (15-37) L 12/03/20 03:16 ALT 30 U/L (12-78) 12/03/20 03:16 Alkaline Phosphatase 90 U/L (45-117) 12/03/20 03:16 Troponin I < 0.02 ng/mL (0.0-0.045) 12/03/20 03:16 Home Medications: Amlodipine [Norvasc*] 10 mg PO DAILY 12/02/20 Cetirizine HCl [All Day Allergy Relief] 10 mg PO DAILY 12/02/20 Cinacalcet HCl 60 mg PO DAILY 12/02/20 Clobetasol [Temovate Cream 0.05%*] 2 ok TOP BID 12/02/20 Ferric Citrate [Auryxia] 210 mg PO TID 12/02/20 Ferrous Sulfate 325 mg PO TIDWM 12/02/20 Furosemide [Lasix] 60 mg PO DAILY 12/02/20 Gabapentin 100 mg PO DAILY PRN 12/02/20 Insulin Glargine Human [Lantus*] 10 units SQ BEDTIME 12/02/20 Metoprolol Succinate 100 mg PO DAILY 12/02/20 Prednisone [Thompson] 5 mg PO DAILY 12/02/20 mycophenolate mofetiL [Mycophenolate Mofetil] 250 mg PO BID 12/02/20 sevelamer HCL [Sevelamer HCl] 2,400 mg PO TIDWM 12/02/20 Levofloxacin [Levaquin] 250 mg PO DAILY 7 Days #7 tablet 12/03/20 cloNIDine HCL [Catapres*] 0.1 mg PO BID 30 Days #60 tab 12/03/20 New Medications: cloNIDine HCL [Catapres*] 0.1 mg PO BID 30 Days #60 tab Levofloxacin [Levaquin] 250 mg PO DAILY 7 Days #7 tablet Physician Discharge Instructions: You were found to be volume overloaded and improved significantly with dialysis. There was a questionable area on your lung for possible mild pneumonia. You were treated with an antibiotic and discharged with 7 more days. Your blood pressure was high and you were started on clonidine 0.1mg twice a day. Continue dialysis as scheduled. Follow up with your PCP in 3-5 days. Follow up with your [place] and Welder Tack in the next few weeks. An echocardiogram was performed prior to discharge but the results are not available yet. Follow up with your doctor to review results. Diet: Renal Activity: Ad kem Followup: NONE,NONE [Primary Care Provider] - Time spent managing pt's care (in minutes): 35
[2020-12-03 17:07] VITALS: BP 135/76; TEMP 97.8
[2020-12-03 17:46] VITALS: O2SAT 99
[2020-12-03] MEDS ORDERED: INSULIN GLARGINE 100 UNITS/ML SQ SCH (21:00)
[2020-12-03] MEDS ORDERED: AMLODIPINE 10 MG TAB PO ONE (23:02)
--- NOTE | 2020-12-04 07:42 | EKG ---
Test Date: 2020-12-02 Test Time: 12:42:53 Pattern Puncher: BRADLEY MEASUREMENT RESULTS: Intervals: Rate: 85 NM: 162 QRSD: 68 QT: 376 QTc: 447 Gautier: P: 52 NM: 162 QRS: 8 T: 64 INTERPRETIVE STATEMENTS: Normal sinus rhythm Normal ECG Compared to ECG 11/22/2020 15:43:31 Left ventricular hypertrophy no longer present T-wave abnormality no longer present Possible ischemia no longer present Electronically Signed On 12-04-20 07:35:22 CDT by Veto Yan
--- NOTE | 2020-12-04 08:50 | ECHO ---
HEIGHT: 4 ft 7 in WEIGHT: 92 lb 8 oz DATE OF STUDY: 12/03/[address]: Chaka Monzon NP 2-DIMENSIONAL: YES M.MODE: YES DOPPLER: YES COLOR FLOW: YES TDS: PORTABLE: DEFINITY: BUBBLE STUDY: DIAGNOSIS: VOLUME OVERLOAD, CONGESTIVE HEART FAILURE VS END STAGE RENAL DISEASE CARDIAC HISTORY: CATHERIZATION: NO SURGERY: NO PROSTHETIC VALVE: NO PACEMAKER: NO MEASUREMENTS (cm) DIASTOLIC (NORMALS) SYSTOLIC (NORMALS) IVSd 0.8 (0.6-1.2) LA Diam 2.9 (1.9-4.0) LVEF 62% LVIDd 5.1 (3.5-5.7) LVIDs 3.4 (2.0-3.5) %FS 34% LVPWd 0.8 (0.6-1.2) Ao Diam 2.4 (2.0-3.7) 2 DIMENSIONAL ASSESSMENT: RIGHT ATRIUM: NORMAL LEFT ATRIUM: NORMAL RIGHT VENTRICLE: NORMAL LEFT VENTRICLE: NORMAL TRICUSPID VALVE: NORMAL MITRAL VALVE: NORMAL PULMONIC VALVE: NORMAL AORTIC VALVE: NORMAL PERICARDIAL EFFUSION: NONE AORTIC ROOT: NORMAL LEFT VENTRICULAR WALL MOTION: NORMAL DOPPLER/COLOR FLOW: MILD TO MODERATE MITRAL REGURGITATION. MILD TRICUSPID REGURGITATION. COMMENTS: NORMAL LEFT VENTRICULAR SIZE AND FUNCTION. NO WALL MOTION ABNORMALITY. MILD TRICUSPID REGURGITATION. NORMAL RIGHT VENTRICULAR SYSTOLIC PRESSURE. MILD TO MODERATE MITRAL REGURGITATION. TECHNOLOGIST: CHENG DESHPANDE
== END 2020-12-03 19:20 | disposition home or self-care (01) | DRG 640 ==
LOC: ER 11:16 → ERHOLD 13:55 → 4TH 16:09
PROVIDERS: ADMIT Hospitalist; ATTEND Hospitalist
PROC: 5A1D70Z Performance of Urinary Filtration, Intermittent, Less than 6 Hours Per Day (ICD-10-PCS; principal; 2020-12-02)
DX: E87.70 Fluid overload, unspecified (principal); N18.6 End stage renal disease; J96.01 Acute respiratory failure with hypoxia; J18.9 Pneumonia, unspecified organism; I13.2 Hypertensive heart and chronic kidney disease with heart failure and with stage 5 chronic kidney disease, or end stage renal disease; Z94.0 Kidney transplant status; I50.9 Heart failure, unspecified; E11.22 Type 2 diabetes mellitus with diabetic chronic kidney disease; I25.10 Atherosclerotic heart disease of native coronary artery without angina pectoris; D72.829 Elevated white blood cell count, unspecified; Z99.2 Dependence on renal dialysis; Z79.52 Long term (current) use of systemic steroids; Z79.899 Other long term (current) drug therapy; Z79.4 Long term (current) use of insulin; Z20.822 Contact with and (suspected) exposure to COVID-19; Z23 Encounter for immunization
CPT/HCPCS: 0240U; 36415; 71045; 71250; 80048; 80053; 82947; 83735; 83880; 84145; 84484; 85025; 86140; 87040; 90471; 90732; 90935; 93005; 93306; 94760; 96374; 99285; J1644; J1940; J7512

== ENCOUNTER 2021-01-13 16:07 | Emergency (ER) | payer MEDICAID ==
--- OUTSIDE RECORDS SUMMARY | 2021-01-13 16:10 | XMS REPORT | Continuity of Care Document ---
:1985 Author Organization [facility] t Address [address] [place] [address] Care Team Providers Name Role Phone 1, Infusion Nurse Attending Clinician Unavailable Doctor Unassigned, Name Attending Clinician Unavailable Yasmeen Shannon MD Attending Clinician Luis Armando Attending Clinician Unavailable Payers Payer Name Policy Type Policy Number Effective Date Expiration Date S ource OTHER-COMMERC [id number] [facility] s - IALGENERIC 00:00:00 [facility] COMMERCIALxxx [id number]/ 21-Present Problems This patient has no known problems. Allergies, Adverse Reactions, Alerts This patient has no known allergies or adverse reactions. Social History Social Habit Start Date Stop Date Quantity Comments Source Sex Assigned At [facility] Medications This patient has no known medications. Vital Signs Vital Name Observation Time Observation Value Comments Source BMI 2020-11-19 09:13:00 23.24 kg/m2 [facility] Body height 2020-11-19 09:13:00 139.7 cm [facility] Body weight 2020-11-19 09:13:00 45.36 kg [facility] Procedures This patient has no known procedures. Encounters Start End Encounter Admission Attending Care Care Encounter Source Date/Time Date/Time Type Type Clinicians Facility Department ID 2021-01-09 2021-01-09 Nurse 1, Sindhu [facility] [id number] 14:14:56 14:29:56 Visit Infusion [place] [id number] Nurse Robert [id number] Surgical [id number] [place] [address] 2021-01-02 2021-01-02 Nurse 1, [facility] [place] [id number] 12:55:03 13:10:03 Visit Infusion [place] [id number] Nurse Robert [id number] Surgical [id number] [place] [address] 2021-01-02 2021-01-02 Orders Doctor INDU [id number] 00:00:00 00:00:00 Only Unassigned, RONI [id number] [place] [facility] [id number] 2020-12-19 2020-12-19 Nurse 1, [facility] [id number] 12 13:35:30 13:50:30 Visit Infusion [place] [id number] Nurse Robert [id number] Surgical [id number] [place] [address] 2020-12-13 2020-12-13 Hospital INDU Shannon [id number] 13:13:00 23:59:00 Encounter Keo TAMAYO [id number] [facility] [id number] Results This patient has no known results.
[2021-01-13 16:38] LABS: Basophils % 0.9 % (0-1.3); Hematocrit 37.3 % (36.0-45.0); Lymphocytes % 8.7 % (15.3-44.8); MPV 7.7 fL (7.6-11.3)
[2021-01-13 16:39] LABS: Protime INR 1.1
[2021-01-13] MEDS ORDERED: ONDANSETRON 4 MG/2 ML VIAL ONE (16:46)
[2021-01-13] MEDS ORDERED: ACETAMINOPHEN 500 MG TAB ONE (16:54)
[2021-01-13] MEDS ORDERED: METOCLOPRAMIDE 10 MG/2mL INJ ONE (16:54)
--- NOTE | 2021-01-13 16:59 | RAD REPORT ---
EXAM DESCRIPTION: CT - Head Brain Wo Cont - 01/13/2021 4:47 pm CLINICAL HISTORY: HEADACHE COMPARISON: No comparisons TECHNIQUE: Axial 5 mm thick images of the head were obtained without IV contrast. All CT scans are performed using dose optimization technique as appropriate and may include automated exposure control or mA/KV adjustment according to patient size. FINDINGS: No intracranial hemorrhage, mass, edema or shift of mid-line structures. No acute infarcti on changes seen. No abnormal extra-axial fluid collections. Ventricles are normal. Physiologic basal ganglia calcifications are present. Asymmetry is created by head tilt. Mastoid air cells and visualized portions of the paranasal sinuses are clear. No acute bony findings. IMPRESSION: Negative non-contrast CT head examination.
[2021-01-13 17:04] LABS: ALT/SGPT 18 U/L (12-78); AST/SGOT 17 U/L (15-37); Albumin 3.4 g/dL (3.4-5.0); Alkaline Phosphatase 86 U/L (45-117); BUN Blood Urea Nitrogen 17 mg/dL (7-18); Bicarbonate 28 mmol/L (21-32); Bilirubin Direct 0.2 mg/dL (0-0.2); Bilirubin Total 0.9 mg/dL (0.2-1.0); Glucose Level 103 mg/dL (74-106); Magnesium 2.3 mg/dL (1.8-2.4); NT PRO-BNP 76730 pg/mL (<125); Potassium 3.6 mmol/L (3.5-5.1); Protein, Total 7.7 g/dL (6.4-8.2); Sodium Level 138 mmol/L (136-145); Troponin (Emerg Dept Use Only) < 0.02 ng/mL (0.0-0.045)
--- NOTE | 2021-01-13 17:04 | RAD REPORT ---
EXAM DESCRIPTION: RAD - Chest Single View - 01/13/2021 4:35 pm CLINICAL HISTORY: hypertension, dialysis patient COMPARISON: Portable December 03 TECHNIQUE: AP portable chest image was obtained 01/13/2021 4:35 pm . FINDINGS: No focal mass or consolidation. Interstitial pattern is not significantly different from c omparison. Heart size is prominent but similar to comparison. Vasculature mildly prominent. Right-tariq ed double-lumen dialysis catheter in place. No measurable pleural effusion and no pneumothorax. No ac [place] bony abnormality seen. No acute aortic findings suspected. IMPRESSION: No diffuse pulmonary edema pattern. Vasculature is mildly prominent a minimal amount of remnant volume overload is possible.
[2021-01-13] MEDS ORDERED: levETIRAcetam 1,000 MG in NA CHLORIDE 0.9% 100 ML IV ONE (19:00)
[2021-01-13] MEDS ORDERED: LORazepam 2 MG/ML VIAL ONE (19:02)
--- NOTE | 2021-01-13 19:21 | ER ---
Nurse's Notes [facility] Name: Rose Marie Kimble Age: 35 yrs Sex: Female : 1985 Arrival Date: 01/13/2021 Time: 16:12 Bed 14 Private MD: Diagnosis: Seizure Presentation: 01/13 16:12 Chief complaint: EMS states: patient coming from [facility] they took 2.7L off of patient. zb Blood pressure was elevated in 200's systolic. Patient was given a 0.3 of clonidine twice blood pressure remained high. Pt is aox 4. c/o of fatigue and headache 05/31. Coronavirus screen: At this time, the client does not indicate any symptoms associated with coronavirus-19. Ebola Screen: No symptoms or risks identified at this time. Initial Sepsis Screen: Does the patient meet any 2 criteria? No. Patient's initial sepsis screen is negative. Does the patient have a suspected source of infection? No. Patient's initial sepsis screen is negative. Risk Assessment: Do you want to hurt yourself or someone else? Patient reports no desire to harm self or others. Onset of symptoms was January 13, 2021. 16:12 Acuity: BHAVANA 3 zb 16:12 Method Of Arrival: EMS: [facility] zb Triage Assessment: 16:30 Pain: Complains of pain in face Pain does not radiate. Pain currently is 8 out of 10 on kg a pain scale. at worst was 10 out of 10 on a pain scale. level that patient reports is acceptable is 3 out of 10 on a pain scale. Quality of pain is described as aching, Also complains of no other associated symptoms. 18:08 Headache History: Denies prior headaches. General: Appears in no apparent distress. kg Behavior is calm, cooperative, appropriate for age, quiet. 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 N/A - Irregular menses rr5 Historical: - Allergies: 20:36 No Known Allergies; rr5 - Home Meds: 16:23 amlodipine 10 mg tab 1 tab once daily [Active]; Auryxia Oral [Active]; gabapentin 100 zb mg Oral cap [Active]; Kayexalate Oral powd 60 mL 2 times per day [Active]; Sensipar Oral [Active]; clonidine HCl 0.1 mg Oral tab [Active]; Lantus Sub-Q [Active]; Lasix Oral [Active]; metoprolol tartrate 100 mg Oral tab [Active]; mycophenolate 1000mg bid [Active]; Protonix 40 mg Oral grps 1 packet once daily [Active]; ferrous sulfate 325 mg (65 mg iron) Oral TbEC 325 mg three times a day [Active]; ropinirole 0.5 mg oral tab 1 tab for Restless Legs Syndrome [Active]; sevelamer HCl oral oral 2 tabs 3 times per day [Active]; tacrolimus 8mg [Active]; - PMHx: 16:23 CAD; Diabetes - IDDM; Dialysis; T-T-S; hyperparathyroidism; Renal Disease; zb - Immunization history:: Adult Immunizations up to date. - Social history:: Smoking status: Patient denies any tobacco usage or history of. Screenin:07 Abuse screen: Denies threats or abuse. Denies injuries from another. Nutritional kg screening: No deficits noted. Tuberculosis screening: No symptoms or risk factors identified. Fall Risk None identified. No fall in past 12 months (0 pts). No secondary diagnosis (0 pts). IV access (20 points). Ambulatory Aid- None/Bed Rest/Nurse Assist (0 pts). Gait- Normal/Bed Rest/Wheelchair (0 pts) Mental Status- Oriented to own ability (0 pts). Total Guy Fall Scale indicates No Risk (0-24 pts). Assessment: 16:05 General: Appears in no apparent distress. Behavior is calm, cooperative, appropriate kg for age, quiet. Pain: Complains of pain in face Pain currently is 8 out of 10 on a pain scale. at worst was 10 out of 10 on a pain scale. level that patient reports is acceptable is 3 out of 10 on a pain scale. Quality of pain is described as aching, Pain began 3 hours ago. Neuro: No deficits noted. Level of Consciousness is Oriented to person, place, time, situation. Cardiovascular: No deficits noted. Heart tones S1 S2. Respiratory: Airway is patent Respiratory effort is even, unlabored, relaxed. GI: No deficits noted. : No deficits noted. EENT: No deficits noted. Derm: No deficits noted. Musculoskeletal: No deficits noted. 16:24 Reassessment: patient active vomiting notified ecp. zb 18:40 Reassessment: Was going to get pain medication for patient and mother stepped out of kg the room motioning to come in that something was wrong. Pt was seizing, seizure lasted approximately two minutes. Pt was foaming at the mouth and decorticate posturing. Physicians notified and came to the room Dr. Guerrero and Snow MAC. Medications where given for seizure, seizure pads applied, suction provided to patients mouth, oxygen applied 2 L and blood glucose checked. . 18:51 Reassessment: Pt is post ictal, resting quietly with mother at bedside. Will continue kg to monitor. . 19:30 General: Appears in no apparent distress. Behavior is drowsy. rr5 19:30 Neuro: Level of Consciousness is post ictal. Cardiovascular: Capillary refill < 3 rr5 seconds Patient's skin is warm and dry. Respiratory: Airway is patent Respiratory effort is even, unlabored, Respiratory pattern is regular, symmetrical. Derm: Skin is intact, is healthy with good turgor, Skin temperature is warm. Musculoskeletal: Capillary refill < 3 seconds. 20:10 Reassessment: Patient appears in no apparent distress at this time. awaiting for other rr5 facility acceptance. 20:54 Reassessment: report given to miranda from [facility]. rr5 21:20 Reassessment: Patient appears in no apparent distress at this time. Patient and/or rr5 family updated on plan of care and expected duration. Pain level reassessed. report given to SEVERINO drowsy, respond to verbal stimuli. vital signs taken and recorded. Vital Signs: 16:12 BP 196 / 90; Pulse 58; Resp 18; Pulse Ox 100% on R/A; Weight 44.5 kg; Height 4 ft. 7 zb in. (139.70 cm); Pain 10/10; 16:46 BP 183 / 86; Pulse 58; Resp 17; Temp 97.6(TE); Pulse Ox 100% on R/A; mh5 17:45 BP 184 / 103; Pulse 55; Resp 18; Pulse Ox 100% on R/A; kg 18:30 BP 183 / 91; Pulse 50; Resp 17; Pulse Ox 100% on R/A; kg 18:50 BP 152 / 78; Pulse 78; Resp 20; Pulse Ox 100% on 2 lpm NC; kg 20:00 BP 165 / 85; Pulse 79; Resp 19; Pulse Ox 99% on 2 lpm NC; rr5 20:54 BP 149 / 95; Pulse 95; Resp 18; Pulse Ox 100% on 2 lpm NC; rr5 21:23 BP 151 / 100; Pulse 89; Resp 18; Pulse Ox 98% on 2 lpm NC; rr5 16:12 Body Mass Index 22.80 (44.50 kg, 139.70 cm) zb ED Course: 16:12 Patient arrived in ED. zb 16:12 Jose Amrando Adamson PA is PHCP. cp 16:12 Juvencio Guerrero MD is Attending Physician. cp 16:16 Triage completed. zb 16:32 William Dina is Primary Nurse. kg 16:35 XRAY Chest (1 view) In Process Unspecified. EDMS 16:43 Basic Metabolic Panel [facility] 16:43 LFT's [facility] 16:43 Magnesium [facility] 16:43 NT PRO-BNP [facility] 16:44 Troponin (emerg Dept Use Only) [facility] 16:44 Patient has correct armband on for positive identification. Bed in low position. [facility] light in reach. Side rails up X2. Warm blanket given. quality assurance monitor chassis on. Pulse ox on. NIBP on. 16:45 Initial lab(s) drawn, by ut, sent to lab. EKG done, by ED staff, reviewed by Juvencio Guerrero MD. Inserted saline lock: 22 gauge in right antecubital area, using aseptic technique. Blood collected. 16:47 CT Head Brain wo Cont In Process Unspecified. EDMS 19:10 Arm band placed on right wrist. rr5 19:28 initiated a transfer with Alicia from [facility] Transfer [place]. mw2 19:50 Inserted saline lock: 20 gauge in right hand, using aseptic technique. rr5 19:53 [facility] denied due to no capacity. mw2 20:02 initiated a transfer with Jenelle from [facility]. mw2 20:12 [facility] denied due to capacity. mw2 20:16 initiated a transfer with Kamilla from [facility]. mw2 20:25 administrative approval given by Kamilla Kline/ patient has been accepted to [address] to the Neuro Floor/ Dr. Lloyd accepted the patient in transfer/ report to be called to [phone]. 21:20 No provider procedures requiring assistance completed. Patient transferred, IV remains rr5 in place. intact, No redness/swelling at site. Administered Medications: 16:40 Drug: Tylenol 1000 mg Route: PO; kg 18:00 Follow up: Response: No adverse reaction kg 16:40 Drug: Reglan (metoCLOPramide) 10 mg Route: IVP; Site: right antecubital; kg 18:00 Follow up: Response: No adverse reaction kg 18:44 Drug: Ativan (LORazepam) 1 mg Route: IVP; Site: right antecubital; ca1 19:40 Follow up: Response: No adverse reaction rr5 18:57 Drug: Keppra (levETIRAcetam) 1000 mg Route: IV; Rate: calculated rate; Site: right kg antecubital; 19:00 Follow up: IV Status: Completed infusion; IV Intake: 100ml kg 21:49 Not Given (Other Intervention Used): Demerol (meperidine) 12.5 mg IVP once; RASS on rr5 ADMIN: Combtv4, Very Agttd3, Agttd2, Rstlss1, AlertClm0, Drwsy-1, Lt Sdtn-2, Mod Sdtn-3, Dp Sdtn-4, UnArsble-5 21:49 Not Given (Hemodynamic Parameters): hydrALAZINE 10 mg IVP once rr5 Intake: 19:00 IV: 100ml; Total: 100ml. kg Outcome: 19:20 ER care complete, transfer ordered by MD. [place] 21:20 Transferred by ground EMS to [facility], Transfer form completed. rr5 21:20 Condition: stable 21:20 Instructed on the need for transfer. 21:23 Patient left the ED. rr5 Signatures: Dispatcher [employer] EDMS Jose Armando Adamson PA PA cp Martinez, Maria 5 Shree Swartz 2 Rob Dinh RN RN rr5 Darlene Mcclelland RN RN ca1 Brown, Zipporah, RN RN Dina Tracy kg
--- NOTE | 2021-01-13 19:21 | EDPHYS ---
Physician Documentation [facility] Name: Rose Marie Kimble Age: 35 yrs Sex: Female : 1985 Arrival Date: 01/13/2021 Time: 16:12 Bed 14 Private MD: ED Physician Juvencio Guerrero HPI: 01/13 16:20 This 35 yrs old Female presents to ER via EMS with complaints of High Blood cp Pressure, Headache. 16:20 The patient has elevated blood pressure and discovered this at a physician's office, cp and sent to the emergency department for evaluation. 16:20 Onset: The symptoms/episode began/occurred today. Associated signs and symptoms: cp Pertinent positives: headache, Pertinent negatives: chest pain, vomiting, weakness. 16:20 Severity of symptoms: At its worst the blood pressure was 200 mm Hg. cp 16:20 Patient reports she completed dialysis today and was referred to ED for elevated blood cp pressure and headache. Patient reports she was given 0.6 mg clonidine at dialysis clinic. 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/A - Irregular menses rr5 Historical: - Allergies: 20:36 No Known Allergies; rr5 - Home Meds: 16:23 amlodipine 10 mg tab 1 tab once daily [Active]; Auryxia Oral [Active]; gabapentin 100 zb mg Oral cap [Active]; Kayexalate Oral powd 60 mL 2 times per day [Active]; Sensipar Oral [Active]; clonidine HCl 0.1 mg Oral tab [Active]; Lantus Sub-Q [Active]; Lasix Oral [Active]; metoprolol tartrate 100 mg Oral tab [Active]; mycophenolate 1000mg bid [Active]; Protonix 40 mg Oral grps 1 packet once daily [Active]; ferrous sulfate 325 mg (65 mg iron) Oral TbEC 325 mg three times a day [Active]; ropinirole 0.5 mg oral tab 1 tab for Restless Legs Syndrome [Active]; sevelamer HCl oral oral 2 tabs 3 times per day [Active]; tacrolimus 8mg [Active]; - PMHx: 16:23 CAD; Diabetes - IDDM; Dialysis; T-T-S; hyperparathyroidism; Renal Disease; zb - Immunization history:: Adult Immunizations up to date. - Social history:: Smoking status: Patient denies any tobacco usage or history of. ROS: 16:25 Constitutional: Negative for fever, poor PO intake. cp 16:25 Eyes: Positive for photophobia. cp 16:25 ENT: Negative for ear pain, sore throat, difficulty swallowing, difficulty handling secretions. 16:25 Cardiovascular: Negative for chest pain. 16:25 Respiratory: Negative for cough, shortness of breath. 16:25 Abdomen/GI: Positive for nausea, Negative for abdominal pain, diarrhea, constipation. 16:25 Neuro: Positive for headache, Negative for altered mental status, seizure activity, weakness. 16:25 All other systems are negative. Exam: 16:30 Constitutional: The patient appears in no acute distress, alert, awake, cp non-diaphoretic, non-toxic, well developed, well nourished. 16:30 Head/Face: Normocephalic, atraumatic. cp 16:30 Eyes: Periorbital structures: appear normal, Pupils: equal, round, and reactive to light and accomodation, Extraocular movements: intact throughout, Conjunctiva: normal, no exudate, no injection, Sclera: no appreciated abnormality, Lids and lashes: appear normal, bilaterally. 16:30 ENT: External ear(s): are unremarkable, Nose: is normal, Mouth: Lips: moist, Oral mucosa: moist, Posterior pharynx: Airway: no evidence of obstruction, patent. 16:30 Neck: ROM/movement: is normal, is supple, without pain, no range of motions limitations. 16:30 Chest/axilla: Inspection: normal. 16:30 Cardiovascular: Rate: bradycardic, Rhythm: regular, Edema: is not appreciated, JVD: is not appreciated. 16:30 Respiratory: the patient does not display signs of respiratory distress, Respirations: normal, no use of accessory muscles, no retractions, labored breathing, is not present, Breath sounds: are clear throughout, no decreased breath sounds, no stridor, no wheezing. 16:30 Abdomen/GI: Inspection: abdomen appears normal, Palpation: abdomen is soft and non-tender, in all quadrants. 16:30 Neuro: Orientation: to person, place \T\ time. Mentation: is normal, Motor: is normal, moves all fours, strength is normal. 16:40 ECG was reviewed by the Attending Physician. cp Vital Signs: 16:12 BP 196 / 90; Pulse 58; Resp 18; Pulse Ox 100% on R/A; Weight 44.5 kg; Height 4 ft. 7 zb in. (139.70 cm); Pain 10/10; 16:46 BP 183 / 86; Pulse 58; Resp 17; Temp 97.6(TE); Pulse Ox 100% on R/A; mh5 17:45 BP 184 / 103; Pulse 55; Resp 18; Pulse Ox 100% on R/A; kg 18:30 BP 183 / 91; Pulse 50; Resp 17; Pulse Ox 100% on R/A; kg 18:50 BP 152 / 78; Pulse 78; Resp 20; Pulse Ox 100% on 2 lpm NC; kg 20:00 BP 165 / 85; Pulse 79; Resp 19; Pulse Ox 99% on 2 lpm NC; rr5 20:54 BP 149 / 95; Pulse 95; Resp 18; Pulse Ox 100% on 2 lpm NC; rr5 21:23 BP 151 / 100; Pulse 89; Resp 18; Pulse Ox 98% on 2 lpm NC; rr5 16:12 Body Mass Index 22.80 (44.50 kg, 139.70 cm) zb MDM: 16:21 Patient medically screened. 16:30 Differential diagnosis: hypertensive crisis, Malignant HTN, CVA, intracerebral cp hemorrhage. 19:19 Data reviewed: vital signs, nurses notes, lab test result(s), EKG, radiologic studies, CT scan, plain films. 20:10 Physician consultation: was contacted at 20:05, regarding regarding transfer, to [facility]. patient's condition, accepting physician will be DR Lloyd, neurologist. 20:10 Test interpretation: by ED physician or midlevel provider: ECG. Response to treatment: cp Improved. 01/13 16:18 Order name: Basic Metabolic Panel 01/13 16:18 Order name: CBC with Diff; Complete Time: 17:09 01/13 17:09 Interpretation: Normal except: WBC 11.20; RDW 16.2; SIERRA% 82.2; LYM% 8.7; NEUT A 9.2. 01/13 16:18 Order name: LFT's; Complete Time: 17:09 01/13 17:10 Interpretation: Normal except: GLOB 4.3; A/G 0.8. 01/13 16:18 Order name: Magnesium; Complete Time: 17:09 cp 05/25 16:18 Order name: NT PRO-BNP; Complete Time: 17:09 cp 05/25 19:14 Interpretation: Abnormal: NT PRO-BNP 38212. cp 05/25 16:18 Order name: PT-INR; Complete Time: 17:09 cp 05/25 16:18 Order name: Troponin (emerg Dept Use Only); Complete Time: 17:09 0525 16:19 Order name: Basic Metabolic Panel; Complete Time: 17:09 EDVA 05 17:09 Interpretation: Normal except: CRE 3.78; GFR 14. cp 05/25 18:55 Order name: Blood Culture Adult (2) cp 05/ 18:56 Order name: Blood Culture EDVA 01/13 18:57 Order name: Glucose, Ancillary Testing; Complete Time: 19:13 EDVA 01/13 16:18 Order name: EKG; Complete Time: 16:19 01/13 16:18 Order name: Cardiac monitoring; Complete Time: 16:44 01/13 16:18 Order name: EKG - Nurse/Tech; Complete Time: 16:42 cp 05/25 16:18 Order name: IV Saline Lock; Complete Time: 16:43 /25 16:18 Order name: Labs collected and sent; Complete Time: 16:43 01/13 16:18 Order name: O2 Per Protocol; Complete Time: 19:09 05/25 16:18 Order name: O2 Sat Monitoring; Complete Time: 19:09 25 16:18 Order name: XRAY Chest (1 view); Complete Time: 17:09 0525 16:18 Order name: CT Head Brain wo Cont; Complete Time: 17:09 0525 17:11 Interpretation: Report reviewed. EC:40 Rate is 54 beats/min. Rhythm is regular. VT interval is normal. QRS interval is normal. cp QT interval is normal. T waves are Inverted in leads aVR, V2. Interpreted by me. Reviewed by me. Administered Medications: 16:40 Drug: Tylenol 1000 mg Route: PO; kg 18:00 Follow up: Response: No adverse reaction kg 16:40 Drug: Reglan (metoCLOPramide) 10 mg Route: IVP; Site: right antecubital; kg 18:00 Follow up: Response: No adverse reaction kg 18:44 Drug: Ativan (LORazepam) 1 mg Route: IVP; Site: right antecubital; ca1 19:40 Follow up: Response: No adverse reaction rr5 18:57 Drug: Keppra (levETIRAcetam) 1000 mg Route: IV; Rate: calculated rate; Site: right kg antecubital; 19:00 Follow up: IV Status: Completed infusion; IV Intake: 100ml kg 21:49 Not Given (Other Intervention Used): Demerol (meperidine) 12.5 mg IVP once; RASS on rr5 ADMIN: Combtv4, Very Agttd3, Agttd2, Rstlss1, AlertClm0, Drwsy-1, Lt Sdtn-2, Mod Sdtn-3, Dp Sdtn-4, UnArsble-5 21:49 Not Given (Hemodynamic Parameters): hydrALAZINE 10 mg IVP once rr5 Disposition: 20:30 Chart complete. cp Disposition: 01/13/21 19:20 Transfer ordered to [facility]. Diagnosis is Seizure. - Reason for transfer: Higher level of care. - Accepting physician is DR Lloyd. - Condition is Stable. - Problem is new. - Symptoms have improved. Addendum: 01/19/2021 07:59 Co-signature as Attending Physician, Juvencio Guerrero MD. r n Signatures: Dispatcher [employer] EDJuvencio Gar MD MD rn Page, Corey, PA PA cp Rob Dinh RN RN rr5 Darlene Mcclelland RN RN ca1 Colton Alba RN RN ll1 Marilin Irwin RN RN zb Dina Thomas kg Corrections: (The following items were deleted from the chart) 01/13 20: 19:12 CORONAVIRUS+MR.LAB.BRZ ordered. EDVA EDVA : 19:13 CORONAVIRUS+MR.LAB.BRZ ordered. EDVA EDMS 20:29 19:20 01/13/2021 19:20 Transfer ordered to [facility]. Diagnosis is Seizure. Reason cp for transfer: Higher level of care. Accepting physician is Doctor. Condition is Stable. Problem is new. Symptoms have improved. cp 21:23 20:29 01/13/2021 19:20 Transfer ordered to [facility]. Diagnosis is rr5 Seizure. Reason for transfer: Higher level of care. Accepting physician is DR Lloyd. Condition is Stable. Problem is new. Symptoms have improved. cp 01/14 02:06 02:02 Onset: The symptoms/episode began/occurred today, cp cp 02: 02:02 Associated signs and symptoms: Pertinent positives: headache, Pertinent cp negatives: chest pain, vomiting, weakness, cp 02:08 01/13 19:19 Response to treatment: the patient's symptoms have markedly improved after cp treatment, cp
[2021-01-13 22:16] VITALS: TEMP 97.6
[2021-01-13 22:22] VITALS: BP 151/100; O2SAT 98
--- NOTE | 2021-01-14 11:59 | EKG ---
Test Date: 2021-01-13 Test Time: 16:32:48 Bottom Painter: JÚNIOR MEASUREMENT RESULTS: Intervals: Rate: 54 TN: 144 QRSD: 76 QT: 480 QTc: 455 [place]: P: 65 TN: 144 QRS: 14 T: 40 INTERPRETIVE STATEMENTS: Sinus bradycardia with premature supraventricular complexes Possible Left atrial enlargement Left ventricular hypertrophy Abnormal ECG Compared to ECG 12/02/2020 12:42:53 Atrial premature complex(es) now present Left ventricular hypertrophy now present Sinus rhythm no longer present Electronically Signed On 01-14-21 11:57:02 CDT by Veto Yan
== END 2021-01-13 21:23 | disposition short-term general hospital (02) ==
LOC: ER 16:07
DX: R56.9 Unspecified convulsions (principal); N28.9 Disorder of kidney and ureter, unspecified; E11.9 Type 2 diabetes mellitus without complications; Z79.4 Long term (current) use of insulin; Z99.2 Dependence on renal dialysis; Z20.822 Contact with and (suspected) exposure to COVID-19
CPT/HCPCS: 93005; 87040 ×2; 85025; 80048; 36415; 83735; 85610; 82947; 80076; 84484; 83880; 70450; 71045; 96375; 96374; 99285; U0003; J2765; J1953; J2405

== ENCOUNTER 2021-02-21 13:25 | Emergency (ER) | payer MEDICAID ==
[2021-02-21 13:48] LABS: Absolute Lymphocytes (CBC) 1.7 K/uL (0.7-4.9); Basophils % 0.8 % (0-1.3); Hematocrit 35.3 % (36.0-45.0); Lymphocytes % 16.7 % (15.3-44.8); MPV 8.4 fL (7.6-11.3); RBC Red Blood Cell Count 3.96 M/uL (3.86-4.86)
[2021-02-21 13:51] LABS: Protime INR 1.02
[2021-02-21] MEDS ORDERED: METOPROLOL TARTRATE 5 MG/5 ML INJ IV ONE ×2 (14:06→14:56)
[2021-02-21 14:10] LABS: Albumin 3.2 g/dL (3.4-5.0); Bilirubin Direct 0.2 mg/dL (0-0.2); Bilirubin Total 0.5 mg/dL (0.2-1.0); Magnesium 2.3 mg/dL (1.8-2.4); Protein, Total 7.3 g/dL (6.4-8.2); Troponin (Emerg Dept Use Only) 0.02 ng/mL (0.0-0.045)
--- NOTE | 2021-02-21 14:23 | RAD REPORT ---
EXAM DESCRIPTION: RAD - Chest Single View - 02/21/2021 2:01 pm CLINICAL HISTORY: PALPITATIONS Chest pain. COMPARISON: <Comparisons> FINDINGS: Portable technique limits examination quality. The lungs are grossly clear. The heart is normal in size. No displaced fractures. IMPRESSION: No acute intrathoracic process suspected.
--- OUTSIDE RECORDS SUMMARY | 2021-02-21 15:10 | XMS REPORT | Continuity of Care Document ---
:1985 Author Organization [facility] t Address [address] [place] [address] Care Team Providers Name Role Phone Doctor Unassigned, Name Attending Clinician Unavailable Uyen RUVALCABA, Papa N Attending Clinician 1, Infusion Nurse Attending Clinician Unavailable Izaiah Mirza Attending Clinician Luis Armando Attending Clinician Unavailable Paxton Lloyd Admitting Clinician Payers Payer Name Policy Type Policy Number Effective Date Expiration Date S ource OTHER-COMMERC [id number] [facility] - IALGENERIC 00:00:00 [facility] COMMERCIALxxx [id number] 21-Present Problems Condition Condition Condition Status Onset Resolution Last Treating Co mments Source Name Details Category Date Date Treatment Clinician Date ERSD Diagnosis Active 2021-01-29 Mem oria 01-20 11:25:00 l ERSD 08:00: Armando 00 Active 01/20/2021 [facility] SEIZURE-NE Diagnosis Active 2021-01-16 Memoria W ONSET 01-13 09:28:00 l 23:03: Armando SEIZURE-NE 00 W ONSET Active 01/13/2021 [facility] NEPHROLOGY Diagnosis Active 2021-01-28 Memoria CONSULT 11-24 07:34:00 l ONLY 00:00: Armando NEPHROLOGY 00 CONSULT ONLY Active 11/24/2020 [facility] NUEROPSYCH Diagnosis Active 2000-2021-02-16 Memoria OLOGY 08-22 07:36:00 l 23:59: Armando NUEROPSYCH 00 OLOGY Active 08/22/2000 [facility] Diabetes Problem Resolve 2021-01-19 Me moria mellitus d 07:34:56 l type 2 Diabetes Kraig n (disorder) mellitus type 2 (disorder) Resolved Problem 01/19/2021 [facility] END STAGE Diagnosis Active 2021-01-29 Memoria RENAL 11:25:00 l DISEASE END [place] STAGE RENAL DISEASE Active [facility] Anemia Problem Resolve 2021-01-19 Joe ariel co-occurre d 07:34:56 l nt and due Anemia Herm grzegorz to end co-occurre stage nt and due renal to end disease stage (disorder) renal disease (disorder) Resolved Problem 01/19/2021 [facility] Disorder Problem Resolve 2021-01-19 Me moria related to d 07:34:56 l transplant Disorder He rmann ation related to (disorder) transplant ation (disorder) Resolved Problem 01/19/2021 [facility] End stage Problem Resolve 2021-01-19 M emoria renal d 07:34:56 l disease End [place] (disorder) stage renal disease (disorder) Resolved Problem 01/19/2021 [facility] Gastroesop Problem Resolve 2021-01-19 Memoria hageal d 07:34:56 l reflux [place] disease Gastroesop (disorder) hageal reflux disease (disorder) Resolved Problem 01/19/2021 [facility] History of Problem Resolve 2021-01-19 Memoria - blood d 07:34:56 l transfusio History Her spann n of - blood (context-d transfusio ependent n category) (context-d ependent category) Resolved Problem 01/19/2021 [facility] Allergies, Adverse Reactions, Alerts Allergy Allergy Status Severity Reaction(s) Onset Inactive Treating Comm ents Source Name Type Date Date Clinician No Known No Known Active Memori a Medicati Medicati l on on Armando dominguez s Social History Social Habit Start Date Stop Date Quantity Comments Source Sex Assigned At [facility] Smoking Status Start Date Stop Date Source Social History [facility] Medications Ordered Filled Start Stop Current Ordering Indication Dosage Frequency Signature Comments Components Source Medication Medication Date Date Medication? Clinician (SIG) Name Name Levetiracet No Notes: Joe ariel am 500 MG 5-28 (Same l Oral Tablet 02:00: as:Keppra) Armando [Keppra] rOPINIRole Yes 0.5 mg = 1 M emoria 0.5 mg oral 5-27 tab, PO, l tablet 22:10: Bedtime, # Shweta nn 00 90 tab, 3 Refill(s), Pharmacy: [id number], 139.7, cm, 01/13/21 23:17:00 CDT, Height, 50.909, kg, 01/13/21 23:17:00 CDT, Weight Levetiracet Yes 500 mg = 1 Memoria am 500 MG 5-27 tab, PO, l Oral Tablet 22:10: Bedtime, # Armando [Harjinderppra] 00 30 tab, 0 Refill(s), Pharmacy: [facility] #[id number], 139.7, cm, 01/13/21 23:17:00 CDT, Height, 50.909, kg, 01/13/21 23:17:00 CDT, Weight Ondansetron No Notes: Joe ariel 5-27 (Same as: l 13:11: Zofran) ropinirole No Route: PO, M emoria 5-27 Drug form: l 02:00: TAB, Bedtime, Dosing Weight 50.909, kg, Start date: 01/14/21 21:00:00 CDT, Duration: 30 day, Stop date: 02/12/21 21:00:00 CDT Tacrolimus No Notes: Memor ia 5-27 (Same As: l 01:00: Prograf) Oral tacrolimus formulatio ns include immediate- release capsules (Prograf), extended-r elease tablets (Envarsus XR) and extended-r elease capsules (Astagraf XL). Different tacrolimus formulatio ns are NOT equivalent and should NOT be used interchang eably. Avoid grapefruit and grapefruit juice. Hazardous Drug Group 2:Non-anti neoplastic Hazardous Drug -- Refer to safe handling procedure PPE Matrix gabapentin No Notes: Memor ia 5-26 (Same as: l 14:13: Neurontin) Amlodipine No Notes: Memor ia 5-26 (Same as: l 14:00: Norvasc) Famotidine No Notes: Memor ia 5-26 (Same as: l 14:00: Pepcid) Metoprolol No Notes: Memor ia Succinate 5-26 (Same as: l ER 50 mg 14:00: Toprol XL) Her spann oral May split tablet, tab, but extended do not release crush. Prednisone No Notes: Memor ia 5-26 Take with l 14:00: food. sevelamer No Notes: Memori a 5-26 Same as: l 14:00: Renvela Clonidine No Notes: Memori a 5-26 (Same As: l 14:00: Catapres) Docusate No Notes: Memoria Sodium 50 5-26 (Same as l MG / 14:00: Senokot-S) sennosides, 00 Equiv. to PENITENTIARY 8.6 MG Deana-Colac Oral Tablet e. mycophenola No Notes: Joe ariel te mofetil 5-26 Hazardous l 13:00: Drug Group 2:Non-anti neoplastic Hazardous Drug -- Refer to safe handling procedure PPE Matrix (Do Not Crush) SEPARATE ANTACIDS from Cellcept by 2 hrs. (Same As: CellCept) Tacrolimus No Notes: Memor ia 5-26 (Same As: l 13:00: Prograf) Oral tacrolimus formulatio ns include immediate- release capsules (Prograf), extended-r elease tablets (Envarsus XR) and extended-r elease capsules (Astagraf XL). Different tacrolimus formulatio ns are NOT equivalent and should NOT be used interchang eably. Avoid grapefruit and grapefruit juice. Hazardous Drug Group 2:Non-anti neoplastic Hazardous Drug -- Refer to safe handling procedure PPE Matrix heparin No Notes: Memoria 5-26 porcine l 13:00: heparin [place] 00 D-50-W No 12.5 gm, Memoria 5-26 25 mL, l 08:09: Route: IVP, Drug Form: INJ, Dosing Weight 50.909, kg, PRN, PRN Blood Glucose Results, Start date: 01/14/21 3:09:00 CDT, Duration: 30 day, Stop date: 02/13/21 3:08:00 CDT, 0 Glucagon No 1 mg, Memoria 5-26 Route: IM, l 08:09: Drug form: PDR/INJ, PRN, Dosing Weight 50.909, kg, PRN Blood Glucose Results, Start date: 01/14/21 3:09:00 CDT, Duration: 30 day, Stop date: 02/13/21 3:08:00 CDT, 0 Insulin No Notes: Memoria Lispro 5-26 (Same as: l 08:09: Humalog) Roll in palms of hands gently; Do not shake vigorously . WASTE: F/P - Black; E - Municipal Trash Bin Stable for 28 days at room temperatur e. Expires in days from ____Date ropinirole No Notes: Memor ia 5-26 (Same as: l 08:03: Requip) Tylenol No Notes: Do Memor ia 5-26 not exceed l 08:00: 4 gm/day. (Same as: Tylenol) Labetalol No 10 mg, 2 Joe ariel 5-26 mL, Route: l 06:34: IVP, Drug form: INJ, Q15Min, Dosing Weight 50.909, kg, PRN Hypertensi on, Start date: 01/14/21 1:34:00 CDT, Duration: 3 doses or times, Stop date: Limited # of times, 0 Hydralazine No Notes: Joe ariel 5-26 (Same as: l 06:33: Apresoline ) Push over 5 minutes Lorazepam No Notes: Memori a 5-26 (Same as: l 05:37: Ativan) Armando 00 Good Sense Yes Daily, 0 Mem oria Allergy 5-26 Refill(s) l Relief 04:48: [place] (Fluticason 00 e) Tacrolimus No 8 mg, Memori a 5-26 Daily, 0 l 04:47: Refill(s) Armando 00 sevelamer Yes PO, 0 Memoria 5-26 Refill(s) l 04:46: [place] 00 fludrocorti Yes 0.1 mg = 1 Memoria sone 0.1 mg 5-26 tab, PO, l oral tablet 04:46: Daily, # He rmann 00 30 tab, 0 Refill(s) rOPINIRole No flu, PO, Mem oria 0.5 mg oral 5-26 Bedtime, # l tablet 04:45: 30 tab, 1 Kraig n 00 Refill(s) fluconazole Yes 50 mg = 1 M emoria 50 mg oral 5-26 tab, PO, l tablet 04:45: Daily, # [place] 00 10 tab, 0 Refill(s) Famotidine Yes 20 mg = 1 Me moria 20 MG Oral 5-26 tab, PO, l Tablet 04:44: BID, 0 Armando 00 Refill(s) pantoprazol Yes = 1 Pack, M emoria e 40 MG 5-26 PO, Daily, l Granules 04:44: # 30 ea, 0 Her spann [Protonix] 00 Refill(s) ferrous Yes 325 mg = 1 Joe ariel sulfate 325 5-26 tab, PO, l mg oral 04:44: TID, # 30 Shweta nn enteric 00 tab, 0 coated Refill(s) tablet Ergocalcife Yes 50,000 Joe ariel rol 99267 5-26 IntlUnit = l UNT Oral 04:43: 1 cap, PO, Her spann Capsule 00 qWeek, # 8 cap, 0 Refill(s) predniSONE Yes 5 mg = 1 Mem oria 5 mg oral 5-26 tab, PO, l tablet 04:43: Daily, Armando 00 Give with food., # 7 tab, 0 Refill(s) cinacalcet Yes 60 mg = 1 Me moria 60 MG Oral 5-26 tab, PO, l Tablet 04:42: Daily, 0 Armando [Sensipar] 00 Refill(s) mycophenola Yes 500 mg, Mem oria te mofetil 5-26 PO, BID, # l 500 mg oral 04:42: 120 tab, 0 Armando tablet 00 Refill(s) cetirizine Yes 10 mg = 1 Me moria 10 mg oral 5-26 tab, PO, l tablet 04:41: Daily, # Armando 00 30 tab, 0 Refill(s) Metoprolol Yes 50 mg, PO, M emoria Succinate 5-26 Daily, # l ER 100 mg 04:41: 30 tab, 0 Her spann oral 00 Refill(s) tablet, extended release calcium Yes 2,000 mg = Joe ariel carbonate 01-14 2 tab, l 1000 mg 04:40: CHEW, QID, Herm grzegorz oral 00 0 tablet, Refill(s) chewable Kayexalate Yes = 60 mL, 0 M emoria 5-26 Refill(s) l 04:39: Armando 00 gabapentin Yes auryxia, Mem oria 100 MG Oral 5-26 PO, TID, # l Capsule 04:38: 90 cap, 1 Shweta nn 00 Refill(s) Auryxia Yes 210 mg, Memoria 5-26 TID-Meals, l 04:38: 0 [place] 00 Refill(s) Amlodipine Yes 10 mg, PO, M emoria 5-26 Daily, 0 l 04:37: Refill(s) Armando 00 Clonidine Yes 0.1 mg = 1 Me moria Hydrochlori 5-26 tab, PO, l de 0.1 MG 04:25: Daily, # Herm grzegorz Oral Tablet 00 90 tab, 3 Refill(s) Vital Signs Vital Name Observation Time Observation Value Comments Source Respitory Rate 2021-01-15 22:00:00 Katrinaori al Armando Systolic (mm Hg) 2021-01-15 22:00:00 Joe rial Armando Diastolic (mm Hg) 2021-01-15 22:00:00 Mem orial [place] Respitory Rate 2021-01-15 20:00:00 Memori al Armando Systolic (mm Hg) 2021-01-15 20:00:00 Joe rial Armando Diastolic (mm Hg) 2021-01-15 20:00:00 Mem orial Armando Temperature Oral (F) 2021-01-15 19:45:00 98.9 F [facility] Armando Temperature Oral (F) 2021-01-15 16:45:00 99.0 F [facility] Armando Temperature Oral (F) 2021-01-15 16:14:00 98.3 F [facility] [place] Respitory Rate 2021-01-15 15:00:00 Memori al [place] Systolic (mm Hg) 2021-01-15 15:00:00 Joe rial Armando Diastolic (mm Hg) 2021-01-15 15:00:00 Mem orial [place] Heart Rate 2021-01-14 05:46:00 [facility] Height 2021-01-14 04:17:00 139.7 cm [facility] Weight 2021-01-14 04:17:00 [facility] BMI Calculated 2021-01-14 04:17:00 Memori al [place] Heart Rate 2021-01-14 03:51:00 [facility] BMI 2020-11-19 09:13:00 23.24 kg/m2 [facility] Body height 2020-11-19 09:13:00 139.7 cm [facility] Body weight 2020-11-19 09:13:00 45.36 kg [facility] Procedures Procedure Date / Time Performed Performing Clinician Sourehsan e Total hip replacement [facility] ermann Total knee replacement [facility] Renal transplant [facility] n Encounters Start End Encounter Admission Attending Care Care Encounter Source Date/Time Date/Time Type Type Clinicians Facility Department ID 2021-02-05 Inpatient [facility] [address] [facility] 10:27:59 2021-02-16 2021-02-16 Orders Doctor GRIGGS [id number] 00:00:00 00:00:00 Only Unassigned, RONI [id number] [place] [id number] 2021-02-09 2021-02-09 Telephone Lashawn-Ramonu [facility] [id number] 00:00:00 00:00:00 Grzegorz buckley MULTISPEC [id number] [facility] [id number] [facility] [id number] [facility] ANG[facility] 2021-02-06 2021-02-06 Nurse 1Sindhu [facility] [id number] 11:05:02 11:20:02 Visit Infusion [place] [id number] Nurse Robert [id number] Surgical [id number] [place] 053 2021-01-28 2021-01-28 Outpatient [facility] [address] [facility] 06:56:00 06:56:00 2021-01-14 2021-01-15 Outpatient [facility], [facility] [id number] 13:54:00 19:00:00 Yulia Bliss 2021-01-14 2021-01-15 [facility] [id number] 13:54:00 19:00:00 Yulia Bliss 2021-01-14 2021-01-14 Outpatient [facility] [address] [facility] 13:54:00 13:54:00 Results Test Description Test Time Test Comments Results Result Comments Source CHEM PANEL 2021-01-15 95 [facility] Shweta nn 09:04:00 CHEM PANEL 2021-01-15 47 [facility] Shweta nn 09:04:00 CHEM PANEL 2021-01-15 8.18 [facility] Shweta nn 09:04:00 CHEM PANEL 2021-01-15 133 [facility] Shweta nn 09:04:00 CHEM PANEL 2021-01-15 4.8 [facility] Shw[place] nn 09:04:00 CHEM PANEL 2021-01-15 95 [facility] Shweta nn 09:04:00 CHEM PANEL 2021-01-15 22 [facility] Shw[place] nn 09:04:00 CHEM PANEL 2021-01-15 20.8 [facility] [place] nn 09:04:00 CHEM PANEL 2021-01-15 8.6 [facility] Shw[place] nn 09:04:00 CHEM PANEL 2021-01-15 6 [facility] Shw[place] nn 09:04:00 CHEM PANEL 2021-01-15 3.5 [facility] Sh[facility] nn 09:04:00 CHEM PANEL 2021-01-15 7.5 [facility] Shw[facility] nn 09:04:00 HEMATOLOGY 2021-01-15 75.9 [facility] Shw[place] nn 09:04:00 HEMATOLOGY 2021-01-15 15.2 [facility] Sh[facility] nn 09:04:00 HEMATOLOGY 2021-01-15 7.3 [facility] nn 09:04:00 HEMATOLOGY 2021-01-15 0.6 [facility] Shw[place] nn 09:04:00 HEMATOLOGY 2021-01-15 1.0 [facility] Shw[place] nn 09:04:00 HEMATOLOGY 2021-01-15 7.6 [facility] Shw[place] nn 09:04:00 HEMATOLOGY 2021-01-15 1.5 [facility] Shw[place] nn 09:04:00 HEMATOLOGY 2021-01-15 0.7 [facility] Shw[place] nn 09:04:00 HEMATOLOGY 2021-01-15 0.1 [facility] Shw[place] nn 09:04:00 HEMATOLOGY 2021-01-15 0.1 [facility] Shw[place] nn 09:04:00 HEMATOLOGY 2021-01-15 10.0 [facility] Shw[place] nn 09:04:00 HEMATOLOGY 2021-01-15 4.31 [facility] Shw[place] nn 09:04:00 HEMATOLOGY 2021-01-15 12.4 [facility] Shweta nn 09:04:00 HEMATOLOGY 2021-01-15 37.3 [facility] Shw[place] nn 09:04:00 HEMATOLOGY 2021-01-15 86.4 [facility] Shweta nn 09:04:00 HEMATOLOGY 2021-01-15 09:04:00 Test Item Value Reference Range Interpretation Comme nts MCH (test code = MCH) 28.9 pg 27.0-31.0 [facility] [id number] 09:04:0033.4[facility]annHEMATOLOGY 2021-01-15 09:04:0016.0[facility] RpbieujRCMKIZJACR5033-93-25 09:04:42923Dtbewgwc UzosvrgCKNWRIDPAH4901-60-50 09:04:007.9[facility] CkuurlmHUQVJQHYVU5875-58-99 06:18:00Negative *NA*(01/15/21 1:18 AM)[facility] TdsppvhUATCDXZXKT0772-24-91 10:35:00Not Detected (01/14/21 5:35 AM)[facility] HermannCHEM [id number] 09:19:23661Wyjxdrzg HermannCHEM SPZVT6034-14-15 09:19:005.0[facility] HermannCHEM WUEXH5314-18-01 09:19:0098[facility] HermannCHEM [id number] 09:19:0023 [facility]annCHEM [id number] 09:19:008.7[facility] HermannCHEM PANEL 2021-01-14 09:19:007.3[facility] HermannCHEM [id number] 09:19:002.9[facility] HermannCHEM [id number] 09:19:0018[facility] HermannCHEM PETYF1577-55-10 09:19:0060[facility] HermannCHEM [id number] 09:19:0067[facility] HermannCHEM IRZCL9532-43-50 09:19:000.7[facility] HermannCHEM [id number] 09:19:0018.0 [facility]annCHE[facility] SYJLY0736-00-15 09:19:00 Test Item Value Reference Range Interpretation Comments B/C Ratio (test code = B/C Ratio) 4 1 6-25 [facility]annCHE[facility] [id number] 09:19:004.4[facility] HermannCHEM PANEL 2021-01-14 09:19:00 Test Item Value Reference Range Interpretation Comments A/G Ratio (test code = A/G Ratio) 0.7 1 0.7-1.6 [facility]annCHEM [id number] 09:19:0010[facility] HermannCHEM PANEL 2021-01-14 09:19:000.8[facility] NmbbhwyJXIZCYQFIG9230-08-36 09:19:0010.1[facility] IiueqteTTWCXHAKFV3632-36-93 09:19:004.39[facility] HnzpghiJRKXCEAIZH2184-86-41 09:19:0012.6[facility] ReasmixANJWDQWBTA7874-46-58 09:19:0038.0[facility] Armando HEEOIIMCCP8448-28-90 09:19:0086.6[facility] MjrqcwwZRDNJWCORP5150-52-55 09:19:00 Test Item Value Reference Range Interpretation Comments MCH (test code = MCH) 28.6 pg 27.0-31.0 [facility] [id number] 09:19:0033.1[facility] HermannHEMATOLOGY 2021-01-14 09:19:0016.5[facility] YumnyhrSBPSPRSLYP6511-97-01 09:19:68321Zlvsytkr MnholwsVNHUCGXPDH3559-88-70 09:19:008.1[facility] SpcqjmsFWTXCFNCQO4293-75-12 09:19:0074.6[facility] GowugsyCJDAHFQGVL5173-16-43 09:19:0014.4[facility] Armando BSTEHVLWEX3632-39-12 09:19:009.2[facility] CgvhymgHFZPIXVRPM4663-12-13 09:19:001.0 Memorial NdjwsvjAQJIAEVSYH6874-77-39 09:19:000.8[facility] HermannHEMATOLOGY 2021-01-14 09:19:007.emorial BpetgdkRGKAYTMHCC8975-79-74 09:19:001.5[facility] BipraqhWUBCQSRUCL0689-83-38 09:19:000.9[facility] AoxmgooANFKTEEGPB3063-72-37 09:19:000.1[facility] WrlaskhXSBLYOZQPU7235-91-41 09:19:000.1[facility] [place] SFPGGWAYHP2172-14-49 09:19:00<2.0[facility] HermannCARDIAC [id number] 09:19:00475Dgexndfs HermannCHEM [id number] 09:19:0075[facility] HermannCHEM [id number] 09:19:0024[facility] HermannCHEM [id number] 09:19:005.39 [facility] [place]
[2021-02-21] MEDS ORDERED: METOPROLOL TAR 25 MG TAB ONE (15:49)
--- NOTE | 2021-02-21 17:22 | ER ---
Nurse's Notes [facility] Name: Rose Marie Kimble Age: 35 yrs Sex: Female : 1985 Arrival Date: 02/21/2021 Time: 13:25 Bed 13 Private MD: Diagnosis: Palpitations Presentation: 02/21 13:29 Chief complaint: EMS states: pt was at dialysis for 57 minutes and began feeling tr6 palpitations. pt was given Benadryl by dialysis center. pt denies cp, sob, dizziness, n/v. Coronavirus screen: At this time, unable to obtain information related to travel outside the [place] Ebola Screen: No symptoms or risks identified at this time. Initial Sepsis Screen: Does the patient meet any 2 criteria? HR > 90 bpm. Does the patient have a suspected source of infection? No. Patient's initial sepsis screen is negative. Risk Assessment: Do you want to hurt yourself or someone else? Patient reports no desire to harm self or others. Onset of symptoms was February 21, 2021. 13:29 Acuity: BHAVANA 2 tr6 13:29 Method Of Arrival: EMS: [facility] tr6 - Immunization history:: Adult Immunizations unknown. - Social history:: Smoking status: unknown. Screenin:31 Abuse screen: Denies threats or abuse. Denies injuries from another. Nutritional tr6 screening: No deficits noted. Tuberculosis screening: No symptoms or risk factors identified. Fall Risk None identified. Assessment: 13:29 General: Appears comfortable, Behavior is calm, cooperative, appropriate for age, tr6 Reports feeling palpitations. Pain: Denies pain. Neuro: No deficits noted. Cardiovascular: Reports palpitations, Denies chest pain, diaphoresis, fatigue, lightheadedness, nausea, shortness of breath, syncope, vomiting, Rhythm is sinus tachycardia Dialysis shunt: in the left upper arm. Respiratory: No deficits noted. GI: No deficits noted. : No deficits noted. EENT: No deficits noted. Derm: No deficits noted. Musculoskeletal: No deficits noted. Vital Signs: 13:29 BP 148 / 81; Pulse 130; Resp 20; Temp 98.7(O); Pulse Ox 98% on R/A; tr6 13:48 BP 134 / 74; Pulse 110; Resp 18; Pulse Ox 98% on R/A; tr6 14:31 Pulse 113; Resp 20; Pulse Ox 98% on R/A; zb 14:52 BP 127 / 78; Pulse 117; Resp 18; Pulse Ox 97% on R/A; zb 17:17 BP 144 / 98; Pulse 76; Resp 13; Pulse Ox 100% on R/A; tr6 ED Course: 13:25 Patient arrived in ED. ds1 13:26 Homer Desir NP is PHCP. pm1 13:26 Kofi Smart MD is Attending Physician. pm1 13:26 EKG done, by ED staff, reviewed by Homer Desir NP. sv 13:29 Kimberly Felix, JAMILAH is Primary Nurse. tr6 13:31 Triage completed. tr6 13:31 Resting quietly. Awaiting ED provider evaluation. tr6 13:31 No provider procedures requiring assistance completed. tr6 13:31 Patient has correct armband on for positive identification. Fall risk band placed. tr6 Placed in gown. Bed in low position. Call light in reach. Side rails up X 1. threat monitoring analyst on. Pulse ox on. NIBP on. Door closed. Noise minimized. Visitors limited. Lights dimmed. Moved to private room. Warm blanket given. Diet: Patient is NPO. 13:49 Inserted saline lock: 20 gauge in right antecubital area, using aseptic technique. tr6 Blood collected. 14:01 XRAY Chest (1 view) In Process Unspecified. EDMS 14:12 Notified Nurse Practitioner and/or Physician Paper Cutter Operator of a critical lab result(s), sv creatinine-5.23. 14:29 Basic Metabolic Panel Sent. sv 17:31 IV discontinued, intact, bleeding controlled, No redness/swelling at site. Pressure tr6 dressing applied. 17:31 Patient placed in an exam room. tr6 Administered Medications: 13:48 Drug: Metoprolol 5 mg Route: IVP; Site: right antecubital; tr6 15:00 Follow up: Response: No adverse reaction tr6 14:51 Drug: Metoprolol 5 mg Route: IVP; Site: right antecubital; zb 15:00 Follow up: Response: No adverse reaction tr6 15:31 Drug: Metoprolol 25 mg Route: PO; tr6 16:33 CANCELLED (Physician Discretion): NS 0.9% 250 ml IV at bolus once pm1 Outcome: 17:20 Discharged to home via wheelchair. tr6 17:20 Condition: stable 17:20 Discharge instructions given to patient, Instructed on discharge instructions, follow up and referral plans. medication usage, safety practices. 17:22 Discharge ordered by MD. pm1 17:56 Patient left the ED. tr6 Signatures: Dispatcher [employer] EDEvelin Monreal RN RN sv Sanford, Demi ds1 Homer Desir NP EXPLOSIVE ORDNANCE HANDLER pm1 Marilin Irwin RN RN zb Ramnanan, Tiffany, RN RN tr6
--- NOTE | 2021-02-21 17:23 | EDPHYS ---
Physician Documentation [facility] Name: Rose Marie Kimble Age: 35 yrs Sex: Female : 1985 Arrival Date: 02/21/2021 Time: 13:25 Bed 13 Private MD: ED Physician Kofi Smart HPI: 02/21 13:55 This 35 yrs old Female presents to ER via EMS with complaints of Palpitations. pm1 13:55 The patient presents with a history of irregular heart beat. Context: The symptoms pm1 occur after onset of dialysis. Onset: The symptoms/episode began/occurred just prior to arrival. Duration: The patient or guardian reports a single episode. Modifying factors: The symptoms are aggravated by possibly dialysis. Patient has orders for metoprolol prior to dialysis treatment. Associated signs and symptoms: The patient has no apparent associated signs or symptoms, Pertinent negatives: chest pain, cough, fever, lightheadedness, nausea, SOB, near-syncope, vomiting, headache. Severity of symptoms: in the emergency department the symptoms are unchanged. The patient has not experienced similar symptoms in the past. Patient at dialysis center during onset of tachycardia. Patient was given Benadryl for tachycardia by dialysis center. - Immunization history:: Adult Immunizations unknown. - Social history:: Smoking status: unknown. ROS: 13:55 Constitutional: Negative for fever, chills, and weight loss. pm1 13:55 Eyes: Negative for injury, pain, redness, and discharge, ENT: Negative for injury, pain, and discharge, Respiratory: Negative for shortness of breath, cough, wheezing, and pleuritic chest pain, Abdomen/GI: Negative for abdominal pain, nausea, vomiting, diarrhea, and constipation, Back: Negative for injury and pain, MS/Extremity: Negative for injury and deformity, Skin: Negative for injury, rash, and discoloration, Neuro: Negative for headache, weakness, numbness, tingling, and seizure. 13:55 Cardiovascular: Positive for palpitations, Negative for chest pain. Exam: 13:55 Constitutional: This is a well developed, well nourished patient who is awake, alert, pm1 and in no acute distress. Head/Face: Normocephalic, atraumatic. 13:55 Back: No spinal tenderness. No costovertebral tenderness. Full range of motion. Skin: Warm, dry with normal turgor. Normal color with no rashes, no lesions, and no evidence of cellulitis. MS/ Extremity: Pulses equal, no cyanosis. Neurovascular intact. Full, normal range of motion. 13:55 Eyes: Exam is negative for acute changes, Periorbital structures: appear normal, Pupils: no acute changes, Extraocular movements: no acute changes, Conjunctiva: no acute changes, no injection, Sclera: no acute changes, icterus, is not appreciated. 13:55 ENT: Exam is negative for acute changes, Mouth: Lips: normal, Oral mucosa: normal, pink and intact, moist. 13:55 Chest/axilla: Inspection: normal, Palpation: is normal, crepitus, is not appreciated, tenderness, is not appreciated. 13:55 Cardiovascular: Rate: tachycardic, Rhythm: regular, Pulses: no pulse deficits are appreciated, Heart sounds: normal, normal S1and S2. 13:55 Respiratory: the patient does not display signs of respiratory distress, Respirations: normal, Breath sounds: are clear throughout. 13:55 Abdomen/GI: Inspection: abdomen appears normal, Palpation: abdomen is soft and non-tender, in all quadrants. 13:55 Neuro: Exam negative for acute changes, Orientation: is normal, Mentation: is normal, Motor: is normal, moves all fours, Sensation: is normal, no obvious gross deficits. Vital Signs: 13:29 BP 148 / 81; Pulse 130; Resp 20; Temp 98.7(O); Pulse Ox 98% on R/A; tr6 13:48 BP 134 / 74; Pulse 110; Resp 18; Pulse Ox 98% on R/A; tr6 14:31 Pulse 113; Resp 20; Pulse Ox 98% on R/A; zb 14:52 BP 127 / 78; Pulse 117; Resp 18; Pulse Ox 97% on R/A; zb 17:17 BP 144 / 98; Pulse 76; Resp 13; Pulse Ox 100% on R/A; tr6 MDM: 13:26 Patient medically screened. pm1 14:07 Data reviewed: vital signs. Data interpreted: Pulse oximetry: on room air is 98 %. pm1 Interpretation: normal. 17:21 Counseling: I had a detailed discussion with the patient and/or guardian regarding: the pm1 historical points, exam findings, and any diagnostic results supporting the discharge/admit diagnosis, lab results, radiology results, the need for outpatient follow up, to return to the emergency department if symptoms worsen or persist or if there are any questions or concerns that arise at home. 17:25 ED course: Patient's vital signs WNL after treatment. It appears that the dialysis pm1 center thought that she had an allergic reaction hence the Benadryl administration but I believe that the patient did not take her metoprolol 100 mg prior to dialysis. Patient's tachycardia resolved with metoprolol 75 mg equivalent given in the ER here. It does not appear to be dehydration since the patient only had 1 hour of dialysis treatment. 02/21 13:31 Order name: Basic Metabolic Panel pm1 02/21 13:31 Order name: CBC with Diff; Complete Time: 13:51 pm1 02/21 13:31 Order name: LFT's; Complete Time: 14:27 pm1 02/21 13:31 Order name: Magnesium; Complete Time: 14:27 pm1 02/21 13:31 Order name: NT PRO-BNP; Complete Time: 14:27 pm1 02/21 13:31 Order name: PT-INR; Complete Time: 13:54 pm1 02/21 13:31 Order name: Troponin (emerg Dept Use Only); Complete Time: 14:27 pm1 02/21 13:31 Order name: XRAY Chest (1 view); Complete Time: 14:27 pm1 02/21 13:31 Order name: EKG; Complete Time: 13:32 pm1 02/21 13:32 Order name: Basic Metabolic Panel; Complete Time: 14:27 EDMS 02/21 13:31 Order name: Cardiac monitoring; Complete Time: 13:44 pm02/21 13:31 Order name: EKG - Nurse/Tech; Complete Time: 13:44 pm1 02/21 13:31 Order name: IV Saline Lock; Complete Time: 13:44 pm02/21 13:31 Order name: Labs collected and sent; Complete Time: 13:44 pm1 02/21 13:31 Order name: O2 Per Protocol; Complete Time: 13:44 pm1 02/21 13:31 Order name: O2 Sat Monitoring; Complete Time: 13:44 pm1 Administered Medications: 13:48 Drug: Metoprolol 5 mg Route: IVP; Site: right antecubital; tr6 15:00 Follow up: Response: No adverse reaction tr6 14:51 Drug: Metoprolol 5 mg Route: IVP; Site: right antecubital; zb 15:00 Follow up: Response: No adverse reaction tr6 15:31 Drug: Metoprolol 25 mg Route: PO; tr6 16:33 CANCELLED (Physician Discretion): NS 0.9% 250 ml IV at bolus once pm1 Disposition Summary: 02/21/21 17:22 Discharge Ordered Location: Home pm1 Problem: new pm1 Symptoms: have improved pm1 Condition: Stable pm1 Diagnosis - Palpitations pm1 Followup: pm1 - With: Emergency Department - When: As needed - Reason: Worsening of condition Followup: pm1 - With: Private Physician - When: 2 - 3 days - Reason: Recheck today's complaints, Continuance of care, Re-evaluation by your physician Discharge Instructions: - Discharge Summary Sheet pm1 - Palpitations pm1 Forms: - Medication Reconciliation Form pm1 - Thank You Letter pm1 - Antibiotic Education pm1 - Prescription Opioid Use pm1 Addendum: 02/23/2021 13:42 Co-signature as Attending Physician, Kofi Smart MD I agree with the assessment and k dr plan of care. Signatures: Dispatcher [employer] EDMS Kofi Smart MD MD [facility] Homer Desir NP DYE HOUSE SUPERVISOR pm1 Marilin Irwin RN RN zb Ramnanan, Tiffany, RN RN tr6 Corrections: (The following items were deleted from the chart) 02/21 16:33 16:33 NS 0.9% 250 ml IV at bolus once ordered. pm1 pm1
[2021-02-21 18:12] VITALS: TEMP 98.7
[2021-02-21 18:18] VITALS: BP 144/98; O2SAT 100
--- NOTE | 2021-02-22 13:47 | EKG ---
Test Date: 2021-02-21 Test Time: 13:26:26 Insurance Claim Representative: SV MEASUREMENT RESULTS: Intervals: Rate: 127 NH: 128 QRSD: 64 QT: 318 QTc: 462 [place]: P: 73 NH: 128 QRS: -6 T: 46 INTERPRETIVE STATEMENTS: Sinus tachycardia with occasional premature ventricular complexes Possible Left atrial enlargement Borderline ECG Compared to ECG 01/13/2021 16:32:48 Ventricular premature complex(es) now present Sinus bradycardia no longer present Atrial premature complex(es) no longer present Left ventricular hypertrophy no longer present Electronically Signed On 02-22-21 13:45:39 CDT by Veto Yan
== END 2021-02-21 17:56 | disposition home or self-care (01) ==
LOC: ER 13:25
DX: R00.2 Palpitations (principal); Z99.2 Dependence on renal dialysis
CPT/HCPCS: 36415; 71045; 80048; 80076; 83735; 83880; 84484; 85025; 85610; 93005; 96374; 99285

== ENCOUNTER 2021-06-06 13:53 | Observation (INO) | payer OTHER ==
[2021-06-06 14:30] LABS: Basophils % 0.7 % (0-1.3); Lymphocytes % 11.5 % (15.3-44.8); MPV 7.9 fL (7.6-11.3); RBC Red Blood Cell Count 2.93 M/uL (3.86-4.86)
[2021-06-06 14:36] LABS: Protime INR 1.1
[2021-06-06] MEDS ORDERED: NA CHLORIDE 0.9% 250 ML ONE (14:41)
[2021-06-06] MEDS ORDERED: NA CHLORIDE 0.9% 1,000 ML ONE (15:15)
[2021-06-06 15:17] LABS: ALT/SGPT 18 U/L (12-78); AST/SGOT 13 U/L (15-37); Albumin 2.9 g/dL (3.4-5.0); Alkaline Phosphatase 76 U/L (45-117); BUN Blood Urea Nitrogen 22 mg/dL (7-18); Bicarbonate 29 mmol/L (21-32); Bilirubin Direct 0.1 mg/dL (0-0.2); Bilirubin Total 0.5 mg/dL (0.2-1.0); Glucose Level 123 mg/dL (74-106); Magnesium 2.1 mg/dL (1.8-2.4); NT PRO-BNP 38974 pg/mL (<125); Potassium 4.1 mmol/L (3.5-5.1); Sodium Level 139 mmol/L (136-145); Troponin (Emerg Dept Use Only) < 0.02 ng/mL (0.0-0.045)
--- NOTE | 2021-06-06 15:36 | RAD REPORT ---
EXAM DESCRIPTION: RAD - Chest Single View - 06/06/2021 3:26 pm CLINICAL HISTORY: COUGH COMPARISON: February 21 TECHNIQUE: AP portable chest image was obtained 06/06/2021 3:26 pm . FINDINGS: Interstitial and scattered alveolar opacities are present representing change from prior i maging. Cardiac silhouette is much larger than on the prior study. Vasculature has increased in promi nence. Trachea is midline. No measurable pleural effusion and no pneumothorax. No acute bony abnormal ity seen. No acute aortic findings suspected. IMPRESSION: Cardiomegaly, increased vasculature and increased interstitial and alveolar opacities. Collective findings would favor failure/volume overload. These findings would be unusual in a patient this age. Pneumonia findings including COVID-19 pneumoni a would be consideration
--- NOTE | 2021-06-06 17:03 | EDPHYS ---
Physician Documentation [facility] Name: Rose Marie Kimble Age: 35 yrs Sex: Female : 1985 Arrival Date: 06/06/2021 Time: 13:54 Bed 25 Private MD: ED Physician Jose Armando Fregoso HPI: 06/06 16:56 This 35 yrs old Female presents to ER via EMS with complaints of Low Blood sanna Pressure. 16:56 The patient has shortness of breath at rest. Onset: The symptoms/episode began/occurred sanna just prior to arrival. Duration: The symptoms are continuous, and are unchanged since they started. The patient's shortness of breath has no apparent modifying factors. hypodialysis, got hypotensive. Associated signs and symptoms: Pertinent positives: non-productive cough. Severity of symptoms: At their worst the symptoms were mild. Onset: The symptoms/episode began/occurred today. Severity of symptoms: in the emergency department the symptoms have improved mildly, Pain is currently a 0 / 10. The patient has experienced similar episodes in the past, several times. Historical: - Allergies: 15:23 No Known Allergies; aj1 - Home Meds: 15:23 amlodipine 10 mg tab 1 tab once daily [Active]; Lantus Sub-Q [Active]; cetirizine 10 mg aj1 oral tab 1 tab once daily [Active]; levetiracetam 500 mg oral Tb24 1 tab once daily [Active]; metoprolol tartrate 100 mg Oral tab 1 tab before dialysis [Active]; ergocalciferol (vitamin D2) 50,000 unit oral tab weekly [Active]; mycophenolate 1000mg bid [Active]; famotidine 10 mg Oral chew 1 tab once daily [Active]; valtessa 8.4 mg daily [Active]; ferrous sulfate 325 mg (65 mg iron) Oral TbEC 325 mg three times a day [Active]; prednisone 5 mg/5 mL Oral soln once daily [Active]; Protonix 40 mg Oral grps 1 packet once daily [Active]; sevelamer HCl Oral 2 tabs 3 times per day [Active]; ropinirole 0.5 mg Oral tab 1 tab for Restless Legs Syndrome [Active]; gabapentin 100 mg Oral cap [Active]; sucroferric oxyhydroxide 500 mg oral chew 1 tab 4 times per day [Active]; hydralazine 50 mg Oral tab 1 tab 3 times per day [Active]; tacrolimus 8mg [Active]; Kayexalate Oral powd 60 mL 2 times per day [Active]; zolpidem 5 mg Oral tab 1 tab once daily [Active]; - PMHx: 15:23 Diabetes - IDDM; Dialysis; T-T-S; hyperparathyroidism; CAD; Renal Disease; Anemia; aj1 - Immunization history:: Adult Immunizations up to date. - Social history:: Smoking status: Patient/guardian denies using tobacco. - Family history:: not pertinent. ROS: 16:56 Constitutional: Negative for fever, chills, and weight loss, Eyes: Negative for injury, sanna pain, redness, and discharge, ENT: Negative for injury, pain, and discharge, Neck: Negative for injury, pain, and swelling, Cardiovascular: Negative for chest pain, palpitations, and edema, Abdomen/GI: Negative for abdominal pain, nausea, vomiting, diarrhea, and constipation, Back: Negative for injury and pain, : Negative for injury, bleeding, discharge, and swelling, MS/Extremity: Negative for injury and deformity, Skin: Negative for injury, rash, and discoloration, Neuro: Negative for headache, weakness, numbness, tingling, and seizure, Psych: Negative for depression, anxiety, suicide ideation, homicidal ideation, and hallucinations, Allergy/Immunology: Negative for hives, rash, and allergies, Endocrine: Negative for neck swelling, polydipsia, polyuria, polyphagia, and marked weight changes, Hematologic/Lymphatic: Negative for swollen nodes, abnormal bleeding, and unusual bruising. 16:56 Respiratory: Positive for cough, shortness of breath, at rest. Exam: 16:56 Constitutional: This is a well developed, well nourished patient who is awake, alert, sanna and in no acute distress. Head/Face: Normocephalic, atraumatic. Eyes: Pupils equal round and reactive to light, extra-ocular motions intact. Lids and lashes normal. Conjunctiva and sclera are non-icteric and not injected. Cornea within normal limits. Periorbital areas with no swelling, redness, or edema. ENT: Nares patent. No nasal discharge, no septal abnormalities noted. Tympanic membranes are normal and external auditory canals are clear. Oropharynx with no redness, swelling, or masses, exudates, or evidence of obstruction, uvula midline. Mucous membranes moist. Neck: Trachea midline, no thyromegaly or masses palpated, and no cervical lymphadenopathy. Supple, full range of motion without nuchal rigidity, or vertebral point tenderness. No Meningismus. Chest/axilla: Normal chest wall appearance and motion. Nontender with no deformity. No lesions are appreciated. Cardiovascular: Regular rate and rhythm with a normal S1 and S2. No gallops, murmurs, or rubs. Normal PMI, no JVD. No pulse deficits. Respiratory: Lungs have equal breath sounds bilaterally, clear to auscultation and percussion. No rales, rhonchi or wheezes noted. No increased work of breathing, no retractions or nasal flaring. Abdomen/GI: Soft, non-tender, with normal bowel sounds. No distension or tympany. No guarding or rebound. No evidence of tenderness throughout. Back: No spinal tenderness. No costovertebral tenderness. Full range of motion. Skin: Warm, dry with normal turgor. Normal color with no rashes, no lesions, and no evidence of cellulitis. MS/ Extremity: Pulses equal, no cyanosis. Neurovascular intact. Full, normal range of motion. Neuro: Awake and alert, GCS 15, oriented to person, place, time, and situation. Cranial nerves II-XII grossly intact. Motor strength 5/5 in all extremities. Sensory grossly intact. Cerebellar exam normal. Normal gait. Psych: Awake, alert, with orientation to person, place and time. Behavior, mood, and affect are within normal limits. 16:56 ECG was reviewed by the Attending Physician. Vital Signs: 13:54 BP 84 / 49; Pulse 76; Resp 18; Pulse Ox 98% on R/A; aj1 14:31 BP 90 / 69; Pulse 74; Resp 18; Pulse Ox 100% on R/A; aj1 14:44 BP 83 / 47; Pulse 73; Resp 18; Pulse Ox 100% on R/A; aj1 15:23 BP 92 / 52; Pulse 80; Resp 16; Pulse Ox 100% on R/A; aj1 15:33 BP 89 / 55; Pulse 74; Resp 18; Pulse Ox 100% on R/A; aj1 16:30 BP 95 / 61; Pulse 74; Resp 18; Pulse Ox 100% on R/A; aj1 17:30 BP 96 / 65; Pulse 82; Resp 18; Pulse Ox 97% ; aj1 18:21 BP 94 / 63; Pulse 85; Resp 18; Temp 98.2; Pulse Ox 100% on R/A; aj1 MDM: 13:54 Patient medically screened. sanna 16:59 Differential diagnosis: Bronchitis CHF exacerbation, pneumonia, pulmonary edema, sanna reactive airway disease, Unstable Angina. Antibiotic administration: Not indicated. Differential Diagnosis altered mental status, sepsis. The patient's [place] Deep Vein Thrombosis Score was calculated as follows: Imm/Surg in last 4 wks (1.5 Pts) Total Score: 0-2 Pts- Low Risk. The patient's pulmonary embolism risk score was calculated as follows: Total Score: 0-2 points. This patient was found to be at low risk for a pulmonary embolism by using the Well's assessment criteria. Immunization status:. Data reviewed: vital signs, nurses notes, EMS record, lab test result(s), EKG, radiologic studies, plain films. 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 Test interpretation: by ED physician or midlevel provider: ECG, plain radiologic studies. Counseling: I had a detailed discussion with the patient and/or guardian regarding: the historical points, exam findings, and any diagnostic results supporting the discharge/admit diagnosis, lab results, radiology results, the need for further work-up and treatment in the hospital. 06/06 13:55 Order name: Basic Metabolic Panel; Complete Time: 16:35 [facility] 06/06 13:55 Order name: CBC with Diff; Complete Time: 16:35 sanna 06/06 13:55 Order name: LFT's; Complete Time: 16:35 sanna 06/06 13:55 Order name: Magnesium; Complete Time: 16:35 sanna 06/06 13:55 Order name: NT PRO-BNP; Complete Time: 16:35 sanna 06/06 13:55 Order name: PT-INR; Complete Time: 16:35 [facility] 06/06 13:55 Order name: Troponin (emerg Dept Use Only); Complete Time: 16:35 [facility] 06/06 17:19 Order name: SARS-COV-2 RT PCR; Complete Time: 19:06 EDMS 06/07 06:14 Order name: CBC with Automated Diff EDID 06/07 06:22 Order name: Basic Metabolic Panel EDMS 06/07 06:22 Order name: T4 Free EDID 06/07 06:22 Order name: Magnesium EDID 06/07 06:22 Order name: Thyroid Stimulating Hormone EDID 06/06 13:55 Order name: XRAY Chest (1 view); Complete Time: 16:35 [facility] 06/06 13:55 Order name: EKG; Complete Time: 13:56 [facility] 06/06 13:55 Order name: Cardiac monitoring; Complete Time: 13:56 [facility] 06/06 13:55 Order name: EKG - Nurse/Tech; Complete Time: 14:11 [facility] 06/06 13:55 Order name: IV Saline Lock; Complete Time: 14:13 [facility] 06/06 13:55 Order name: Labs collected and sent; Complete Time: 14:13 [facility] 06/06 13:55 Order name: O2 Per Protocol; Complete Time: 13:56 [facility] 06/06 13:55 Order name: O2 Sat Monitoring; Complete Time: 13:56 [facility] EC:56 Rate is 76 beats/min. Rhythm is regular. QRS [place] is Normal. NC interval is normal. QRS sanna interval is normal. QT interval is normal. No Q waves. T waves are Inverted in leads II, III, aVF, V4, V5, V6. No ST changes noted. Clinical impression: NSR w/ Non-specific ST/T Changes and No evidence of ischemia. Interpreted by me. Reviewed by me. Administered Medications: 14:18 Drug: NS 0.9% 250 ml Route: IV; Rate: bolus; Site: right antecubital; aj1 19:14 Follow up: IV Status: Completed infusion; IV Intake: 250ml aj1 Disposition Summary: 06/06/21 17:02 Hospitalization Ordered Hospitalization Status: Observation sanna Provider: Rob Guerrero sanna Condition: Fair sanna Problem: new sanna Symptoms: have improved sanna Bed/Room Type: Standard sanna Location: [facility] ER HOLD(06/06/21 19:23) Room Assignment: ERHOLD-(06/06/21 19:23) cg Diagnosis - Hypotension, unspecified sanna - Weakness sanna - End stage renal disease - on HD T,Th , Sat sanna - Anemia, unspecified sanna - Unspecified combined systolic (congestive) and diastolic (congestive) heart failure sanna Forms: - Medication Reconciliation Form sanna - SBAR form [facility] Signatures: Dispatcher [employer] EDVaishnavi Sharp RN RN aj1 Jose Armando Fregoso MD MD cha Garcia, Cindy RN JAMILAH cg Corrections: (The following items were deleted from the chart) 17: 15:16 CORONAVIRUS+MR.LAB.BRZ ordered. [facility] : 13:55 Urine Test ordered. [place] [id number] : 13:55 Urine Dipstick-Ancillary ordered. [place] [id number] 17:02 Telemetry/MedSurg (observation) sanna 17:02 sanna mcmillan
--- NOTE | 2021-06-06 17:03 | ER ---
Nurse's Notes [facility] Name: Rose Marie Kimble Age: 35 yrs Sex: Female : 1985 Arrival Date: 06/06/2021 Time: 13:54 Bed 25 Private MD: Diagnosis: Hypotension, unspecified;Weakness;End stage renal disease-on HD T,Th , Sat;Anemia, unspecified;Unspecified combined systolic (congestive) and diastolic (congestive) heart failure Presentation: 06/06 13:54 Chief complaint: EMS states: Patient went for her dialysis treatment and became aj1 hypotensive. BP dropped to 81/38, so staff stopped HD treatment and gave patient a 500 cc bolus but blood pressure did not improve. Coronavirus screen: Client denies travel out of the [place] in the last 14 days. Ebola Screen: Patient denies travel to an Ebola-affected area in the 21 days before illness onset. Initial Sepsis Screen: Does the patient meet any 2 criteria? No. Patient's initial sepsis screen is negative. Does the patient have a suspected source of infection? No. Patient's initial sepsis screen is negative. Risk Assessment: Do you want to hurt yourself or someone else? Patient reports no desire to harm self or others. Onset of symptoms was June 06, 2021. 13:54 Method Of Arrival: EMS: [facility] aj1 13:54 Acuity: BHAVANA 2 aj1 Historical: - Allergies: 15:23 No Known Allergies; aj1 - Home Meds: 15:23 amlodipine 10 mg tab 1 tab once daily [Active]; Lantus Sub-Q [Active]; cetirizine 10 mg aj1 oral tab 1 tab once daily [Active]; levetiracetam 500 mg oral Tb24 1 tab once daily [Active]; metoprolol tartrate 100 mg Oral tab 1 tab before dialysis [Active]; ergocalciferol (vitamin D2) 50,000 unit oral tab weekly [Active]; mycophenolate 1000mg bid [Active]; famotidine 10 mg Oral chew 1 tab once daily [Active]; valtessa 8.4 mg daily [Active]; ferrous sulfate 325 mg (65 mg iron) Oral TbEC 325 mg three times a day [Active]; prednisone 5 mg/5 mL Oral soln once daily [Active]; Protonix 40 mg Oral grps 1 packet once daily [Active]; sevelamer HCl Oral 2 tabs 3 times per day [Active]; ropinirole 0.5 mg Oral tab 1 tab for Restless Legs Syndrome [Active]; gabapentin 100 mg Oral cap [Active]; sucroferric oxyhydroxide 500 mg oral chew 1 tab 4 times per day [Active]; hydralazine 50 mg Oral tab 1 tab 3 times per day [Active]; tacrolimus 8mg [Active]; Kayexalate Oral powd 60 mL 2 times per day [Active]; zolpidem 5 mg Oral tab 1 tab once daily [Active]; - PMHx: 15:23 Diabetes - IDDM; Dialysis; T-T-S; hyperparathyroidism; CAD; Renal Disease; Anemia; aj1 - Immunization history:: Adult Immunizations up to date. - Social history:: Smoking status: Patient/guardian denies using tobacco. - Family history:: not pertinent. Screenin:32 Abuse screen: Denies threats or abuse. Denies injuries from another. Nutritional aj1 screening: No deficits noted. Tuberculosis screening: No symptoms or risk factors identified. Assessment: 14:00 General: Appears in no apparent distress. comfortable, Behavior is calm, cooperative, aj1 drowsy. Pain: Denies pain. Neuro: Level of Consciousness is awake, alert, obeys commands, Oriented to person, place, time, situation, Reports dizziness. Cardiovascular: Heart tones S1 S2 present Patient's skin is warm and dry. Rhythm is sinus rhythm. Respiratory: Airway is patent Respiratory effort is even, unlabored, Respiratory pattern is regular, symmetrical, Breath sounds are clear bilaterally. GI: No signs and/or symptoms were reported involving the gastrointestinal system. Abdomen is flat, non-distended, Abd is soft and non tender X 4 quads. : No signs and/or symptoms were reported regarding the genitourinary system. EENT: No signs and/or symptoms were reported regarding the EENT system. Derm: Skin is pink, warm \T\ dry. Musculoskeletal: Circulation, motion, and sensation intact. 15:00 Reassessment: Patient appears in no apparent distress at this time. No changes from aj1 previously documented assessment. Patient and/or family updated on plan of care and expected duration. Pain level reassessed. Patient is alert, oriented x 3, equal unlabored respirations, skin warm/dry/pink. 16:00 Reassessment: Patient and/or family updated on plan of care and expected duration. Pain aj1 level reassessed. General: Appears in no apparent distress. comfortable, Behavior is calm, cooperative, drowsy. Pain: Denies pain. Neuro: Level of Consciousness is awake, alert, obeys commands, Oriented to person, place, time, situation. Cardiovascular: Patient's skin is warm and dry. Rhythm is sinus rhythm. Respiratory: Airway is patent Respiratory effort is even, unlabored, Respiratory pattern is regular, symmetrical. GI: No signs and/or symptoms were reported involving the gastrointestinal system. Derm: Skin is pink, warm \T\ dry. Musculoskeletal: Circulation, motion, and sensation intact. 17:00 Reassessment: Patient appears in no apparent distress at this time. No changes from aj1 previously documented assessment. Patient and/or family updated on plan of care and expected duration. Pain level reassessed. Patient is alert, oriented x 3, equal unlabored respirations, skin warm/dry/pink. 18:20 Reassessment: Patient and/or family updated on plan of care and expected duration. Pain aj1 level reassessed. General: Appears in no apparent distress. comfortable, Behavior is calm, cooperative, drowsy. Pain: Denies pain. Neuro: Level of Consciousness is awake, alert, obeys commands, Oriented to person, place, time, situation, Reports dizziness. Cardiovascular: Heart tones S1 S2 present Patient's skin is warm and dry. Rhythm is sinus rhythm. Respiratory: Airway is patent Respiratory effort is even, unlabored, Respiratory pattern is regular, symmetrical, Breath sounds are clear bilaterally. Derm: Skin is pink, warm \T\ dry. Musculoskeletal: Circulation, motion, and sensation intact. Vital Signs: 13:54 BP 84 / 49; Pulse 76; Resp 18; Pulse Ox 98% on R/A; aj1 14:31 BP 90 / 69; Pulse 74; Resp 18; Pulse Ox 100% on R/A; aj1 14:44 BP 83 / 47; Pulse 73; Resp 18; Pulse Ox 100% on R/A; aj1 15:23 BP 92 / 52; Pulse 80; Resp 16; Pulse Ox 100% on R/A; aj1 15:33 BP 89 / 55; Pulse 74; Resp 18; Pulse Ox 100% on R/A; aj1 16:30 BP 95 / 61; Pulse 74; Resp 18; Pulse Ox 100% on R/A; aj1 17:30 BP 96 / 65; Pulse 82; Resp 18; Pulse Ox 97% ; aj1 18:21 BP 94 / 63; Pulse 85; Resp 18; Temp 98.2; Pulse Ox 100% on R/A; aj1 ED Course: 13:54 Patient arrived in ED. aj1 13:54 Jose Armando Fregoso MD is Attending Physician. [facility] 13:56 Triage completed. aj1 13:58 Vaishnavi Love RN is Primary Nurse. aj1 14:15 Inserted saline lock: 20 gauge in right antecubital area, using aseptic technique. aj1 Blood collected. 15:23 Arm band placed on. aj1 15:26 XRAY Chest (1 view) In Process Unspecified. EDMS 15:32 Patient has correct armband on for positive identification. Bed in low position. Call aj light in reach. Side rails up X 1. 15:32 No provider procedures requiring assistance completed. aj1 17:01 Rob Guerrero MD is Hospitalizing Provider. [facility] Administered Medications: 14:18 Drug: NS 0.9% 250 ml Route: IV; Rate: bolus; Site: right antecubital; aj1 19:14 Follow up: IV Status: Completed infusion; IV Intake: 250ml aj Intake: 19:14 IV: 250ml; Total: 250ml. aj Outcome: 17:02 Decision to Hospitalize by Provider. [facility] 06/07 14:35 Patient left the ED. eb Signatures: Dispatcher [employer] EDUT Vaishnavi Love, JAMILAH RN aj Jose Armando Fregoso MD MD cha Botello, Elizabeth eb
--- NOTE | 2021-06-06 17:37 | P.HP ---
Patient History Date of Service: 06/06/21 Primary Care Provider: Dr. Sandoval; Nephrology-Dr. Benson Reason for admission: Hypotension during dialysis History of Present Illness: 35-year-old female with history of end-stage renal disease on hemodialysis with prior renal transplant and hypertension. Patient presented emergency room after she had low blood pressure during dialysis. She denied any chest pain, shortness of breath, edema. Patient also reported no fever. She was brought in to the hospital for further evaluation and treatment. The ER patient was evaluated. Lab reviewed. Patient given 750 cc of fluid with improvement of blood pressure. Blood pressure stable around 95 systolic. Patient admitted for further evaluation and treatment. Allergies No Known Allergies Allergy (Unverified 12/02/20 16:56) Home medications list reviewed: Yes Home Medications: Amlodipine [Norvasc*] 10 mg PO DAILY 12/02/20 Cetirizine HCl [All Day Allergy Relief] 10 mg PO DAILY 12/02/20 Cinacalcet HCl 60 mg PO DAILY 12/02/20 Clobetasol [Temovate Cream 0.05%*] 2 ok TOP BID 12/02/20 Ferric Citrate [Auryxia] 210 mg PO TID 12/02/20 Ferrous Sulfate 325 mg PO TIDWM 12/02/20 Furosemide [Lasix] 60 mg PO DAILY 12/02/20 Gabapentin 100 mg PO DAILY PRN 12/02/20 Insulin Glargine Human [Lantus*] 10 units SQ BEDTIME 12/02/20 Metoprolol Succinate 100 mg PO DAILY 12/02/20 Prednisone [Thompson] 5 mg PO DAILY 12/02/20 mycophenolate mofetiL [Mycophenolate Mofetil] 250 mg PO BID 12/02/20 sevelamer HCL [Sevelamer HCl] 2,400 mg PO TIDWM 12/02/20 Levofloxacin [Levaquin] 250 mg PO DAILY 7 Days #7 tablet 12/03/20 cloNIDine HCL [Catapres*] 0.1 mg PO BID 30 Days #60 tab 12/03/20 - Past Medical/Surgical History Diabetic: Yes -: End-stage renal disease on hemodialysis with prior renal transplant -: s/p renal transplant -: Hypertension -: Diabetes mellitus type 2 insulin-dependent -: Renal transplant -: multple leg surgeries when small Psychosocial/ Personal History: Lives at home - Family History Mother -: Diabetes - Social History Smoking Status: Never smoker Alcohol use: No CD- Drugs: No Caffeine use: No Place of Residence: Home Review of Systems General: As per HPI Eyes: Unremarkable ENT: Unremarkable Respiratory: Unremarkable Cardiovascular: Unremarkable Gastrointestinal: Unremarkable Genitourinary: Unremarkable Musculoskeletal: Unremarkable Integumentary: Unremarkable Neurological: Unremarkable Lymphatics: Unremarkable Physical Examination - Studies Laboratory Data (last 24 hrs) 06/06/21 14:11: PT 12.7 H, INR 1.10 06/06/21 14:11: WBC 8.40, Hgb 9.4 L, Hct 28.0 L, Plt Count 245 06/06/21 14:11: Sodium 139, Potassium 4.1, BUN 22 H, Creatinine 3.82 H, Glucose 123 H, Magnesium 2.1, Total Bilirubin 0.5, AST 13 L, ALT 18, Alkaline Phosphatase 76 Assessment and Plan - Plan COVID: pending Chest x-ray: COMPARISON: February 21 TECHNIQUE: AP portable chest image was obtained 06/06/2021 3:26 pm . FINDINGS: Interstitial and scattered alveolar opacities are present representing change from prior imaging. Cardiac silhouette is much larger than on the prior study. Vasculature has increased in prominence. Trachea is midline. No measurable pleural effusion and no pneumothorax. No acute bony abnormality seen. No acute aortic findings suspected. IMPRESSION: Cardiomegaly, increased vasculature and increased interstitial and alveolar opacities. Collective findings would favor failure/volume overload. These findings would be unusual in a patient this age. Pneumonia findings including COVID-19 pneumonia would be consideration Physical Exam: GENERAL: The patient is a well-developed, well-nourished, in no apparent distress. Alert and oriented x3. VITAL SIGNS: Reviewed HEENT: Head is normocephalic and atraumatic. Extraocular muscles are intact. Pupils are equal, round, and reactive to light and accommodation. Nares appeared normal. Mouth is well hydrated and without lesions. Mucous membranes are moist. NECK: Supple. No carotid bruits. No lymphadenopathy or thyromegaly. LUNGS: Clear to auscultation. No crackles or wheezes are heard. HEART: Regular rate and rhythm, no appreciable gallops, rubs, murmurs or extra heart sounds ABDOMEN: Soft, nontender, and nondistended. Positive bowel sounds. No hepatosplenomegaly was noted. EXTREMITIES: Without any cyanosis, clubbing, rash, lesions or peripheral edema. NEUROLOGIC: The patient is oriented to person, place and time. Strength and sensation are grossly intact. Face is symmetric. SKIN: Normal color, turgor and temperature. No ulcerations or rashes noted. Impression: Hypotension complicated with end-stage renal disease on hemodialysis with renal transplant History of hypertension Plan: Patient received 750 cc of fluid in the emergency room. Case discussed at length with nephrology. Nephrology recommends to hold further IV fluids at this time. Blood pressure stable around 95-100 systolic. Patient clinically improved. Will monitor off of her blood pressure medication. Patient reports taking clonidine, metoprolol. Will provide midodrine. Nephrology to assess. Await recommendation. Code Status: Full Code DVT prophylaxis: Heparin Advanced Care Planning-30 minutes: Home at discharge Discharge Plan: Home Plan to discharge in: 24 Hours - Advance Directives Does patient have a Living Will: No Does patient have a Durable POA for Healthcare: No - Code Status/Comfort Care Code Status Assessed: Yes (Full code) Time Spent Managing Pts Care (In Minutes): 55
[2021-06-06 19:21] VITALS: BMI 22.5
[2021-06-06] MEDS ORDERED: ACETAMINOPHEN 500 MG TAB PO PRN (20:04)
[2021-06-06] MEDS ORDERED: ONDANSETRON 4 MG/2 ML VIAL IV PRN (20:04)
[2021-06-06] MEDS: MIDODRINE HCL 5 MG TABLET PO SCH (22:35)
[2021-06-06] MEDS: HEPARIN 5000 UNIT/ML 1 ML VIAL SQ SCH (22:35)
[2021-06-06] MEDS ORDERED: HEPARIN 5000 UNIT/ML 1 ML VIAL ONE (22:48)
[2021-06-07 06:09] LABS: Magnesium 2.5 mg/dL (1.8-2.4); Potassium 4.8 mmol/L (3.5-5.1); Thyroid Stimulating Hormone 1.56 uIU/mL (0.360-3.740)
[2021-06-07 06:10] LABS: Absolute Lymphocytes (CBC) 1.2 K/uL (0.7-4.9); Basophils % 1.2 % (0-1.3); Hematocrit 30.6 % (36.0-45.0); Lymphocytes % 24.1 % (15.3-44.8); MPV 8.3 fL (7.6-11.3); RBC Red Blood Cell Count 3.19 M/uL (3.86-4.86)
--- NOTE | 2021-06-07 06:17 | P.PN ---
Subjective Date of Service: 06/07/21 Primary Care Provider: Dr. Sandoval; Nephrology-Dr. Benson Chief Complaint: Hypotension during dialysis Subjective: Improving Physical Examination - Vital Signs Temperature: 99.1 F Blood Pressure: 93/55 Pulse: 75 Respirations: 24 Pulse Ox (%): 97 - Studies Laboratory Data (last 24 hrs) 06/06/21 14:11: PT 12.7 H, INR 1.10 06/06/21 14:11: WBC 8.40, Hgb 9.4 L, Hct 28.0 L, Plt Count 245 06/06/21 14:11: Sodium 139, Potassium 4.1, BUN 22 H, Creatinine 3.82 H, Glucose 123 H, Magnesium 2.1, Total Bilirubin 0.5, AST 13 L, ALT 18, Alkaline Phosphatase 76 Assessment & Plan Discharge Plan: Home Plan to discharge in: 24 Hours Physician Review Additional Text: COVID: negative Chest x-ray: COMPARISON: February 21 TECHNIQUE: AP portable chest image was obtained 06/06/2021 3:26 pm . FINDINGS: Interstitial and scattered alveolar opacities are present representing change from prior imaging. Cardiac silhouette is much larger than on the prior study. Vasculature has increased in prominence. Trachea is midline. No measurable pleural effusion and no pneumothorax. No acute bony abnormality seen. No acute aortic findings suspected. IMPRESSION: Cardiomegaly, increased vasculature and increased interstitial and alveolar opacities. Collective findings would favor failure/volume overload. These findings would be unusual in a patient this age. Pneumonia findings including COVID-19 pneumonia would be consideration Physical Exam: GENERAL: The patient is a well-developed, well-nourished, in no apparent distress. Alert and oriented x3. Vital signs stable. VITAL SIGNS: Reviewed HEENT: neck supple LUNGS: Clear to auscultation. No crackles or wheezes are heard. HEART: Regular rate and rhythm, no appreciable gallops, rubs, murmurs or extra heart sounds ABDOMEN: Soft, nontender, and nondistended. Positive bowel sounds. No hepatosplenomegaly was noted. EXTREMITIES: Without any cyanosis, clubbing, rash, lesions or peripheral edema. NEUROLOGIC: The patient is oriented to person, place and time. Strength and sen sation are grossly intact. Face is symmetric. SKIN: Normal color, turgor and temperature. No ulcerations or rashes noted. Impression: Hypotension complicated with end-stage renal disease on hemodialysis with renal transplant History of hypertension Plan: Patient stable. Case discussed at length with nephrology. Patient remained s table off blood pressure medication. We will plan to discharge home off blood pressure medication. Code Status: Full Code DVT prophylaxis: Heparin Advanced Care Planning-30 minutes: Home at discharge Time Spent Managing Pts Care (In Minutes): 55
[2021-06-07] MEDS ORDERED: FAMOTIDINE 20 MG TAB PO PRN (06:49)
[2021-06-07] MEDS ORDERED: GABAPENTIN 100 MG CAP PO PRN (06:49)
[2021-06-07] MEDS ORDERED: THIAMINE HCL 100 MG TABLET ONE (08:04)
[2021-06-07] MEDS ORDERED: CETIRIZINE HCL 5 MG TABLET ONE (08:04)
[2021-06-07] MEDS ORDERED: HEPARIN 5000 UNIT/ML 1 ML VIAL ONE (08:04)
[2021-06-07] MEDS ORDERED: levETIRAcetam 500 MG TAB ONE (08:05)
[2021-06-07] MEDS ORDERED: FOLIC ACID 1 MG TABLET ONE (08:05)
[2021-06-07] MEDS: MIDODRINE HCL 5 MG TABLET PO SCH ×2 (08:12→12:30)
[2021-06-07] MEDS: FERROUS SULFATE 325 MG TAB PO SCH ×2 (08:12→12:29)
[2021-06-07] MEDS: HEPARIN 5000 UNIT/ML 1 ML VIAL SQ SCH (08:14)
[2021-06-07] MEDS ORDERED: SEVELAMER CARBONATE 800 MG TABLET PO SCH (09:00)
[2021-06-07] MEDS ORDERED: [UNRECOGNIZED DRUG - REMARK] PO SCH (09:00)
[2021-06-07] MEDS ORDERED: CETIRIZINE HCL 5 MG TABLET PO SCH (09:00)
[2021-06-07] MEDS ORDERED: levETIRAcetam 500 MG TAB PO SCH (09:00)
[2021-06-07] MEDS ORDERED: THIAMINE HCL 100 MG TABLET PO SCH (09:00)
[2021-06-07] MEDS ORDERED: FOLIC ACID 1 MG TABLET PO SCH (09:00)
[2021-06-07 09:37] VITALS: O2SAT 100
--- NOTE | 2021-06-07 09:39 | P.CNS ---
Date of Consult: 06/07/21 Reason for Consult: ESRD Requesting Physician: John Blanco Primary Care Provider: Dr. Sandoval; Nephrology-Dr. Benson Chief Complaint: Hypotension during dialysis History of Present Illness: 35-year-old female with history of end-stage renal disease on hemodialysis with prior renal transplant and hypertension. Patient presented emergency room after she had low blood pressure during dialysis. She denied any chest pain, shortness of breath, edema. Patient also reported no fever. She was brought in to the hospital for further evaluation and treatment. 16:56 This 35 yrs old Female presents to ER via EMS with complaints of Low Blood sanna Pressure. 16:56 The patient has shortness of breath at rest. Onset: The symptoms/episode began/occurred sanna just prior to arrival. Duration: The symptoms are continuous, and are unchanged since they started. The patient's shortness of breath has no apparent modifying factors. hypodialysis, got hypotensive. Associated signs and symptoms: Pertinent positives: non-productive cough. Severity of symptoms: At their worst the symptoms were mild. Onset: The symptoms/episode began/occurred today. Severity of symptoms: in the emergency department the symptoms have improved mildly, Pain is currently a 0 / 10. The patient has experienced similar episodes in the past, several times. Allergies No Known Allergies Allergy (Unverified 12/02/20 16:56) Home medications list reviewed: Yes Home Medications: Cetirizine HCl [All Day Allergy Relief] 10 mg PO DAILY 12/02/20 Cinacalcet HCl 60 mg PO DAILY 12/02/20 Clobetasol [Temovate Cream 0.05%*] 2 ok TOP BID PRN 12/02/20 Ferrous Sulfate 325 mg PO TIDWM 12/02/20 Gabapentin 100 mg PO DAILY PRN 12/02/20 sevelamer HCL [Sevelamer HCl] 2 tab PO BID 12/02/20 Azelastine [Astelin 137MCG/Metered [place]*] 1 sprays NS BID PRN 06/07/21 Famotidine 40 mg PO BEDTIME PRN 06/07/21 Levetiracetam [Keppra] 250 mg PO BID 06/07/21 Mometasone 0.1% [Elocon 0.1% Cream*] 1 appl TP BID 06/07/21 - Past Medical/Surgical History Diabetic: Yes -: End-stage renal disease on hemodialysis with prior renal transplant -: s/p renal transplant -: Hypertension -: Diabetes mellitus type 2 insulin-dependent -: Renal transplant -: multple leg surgeries when small Psychosocial/ Personal History: Lives at home - Family History Mother Medical History: Diabetes - Social History Smoking Status: Unknown if ever smoked Alcohol use: No CD- Drugs: No Caffeine use: No Place of Residence: Home Review of Systems 10-point ROS is otherwise unremarkable Physical Examination Temp Pulse Resp BP Pulse Ox 99.1 F 75 24 H 93/55 L 97 06/07/21 06:17 06/07/21 06:17 06/07/21 06:17 06/07/21 06:17 06/07/21 06:17 General: In no apparent distress, Oriented x3, Cooperative HEENT: Atraumatic Neck: Supple Respiratory: Clear to auscultation bilaterally Cardiovascular: No edema, Regular rate/rhythm Gastrointestinal: Soft and benign, Non-distended Musculoskeletal: No clubbing, No contractures Integumentary: No rashes, No cyanosis Neurological: Normal speech Laboratory Data (last 24 hrs) 06/06/21 14:11: PT 12.7 H, INR 1.10 06/06/21 14:11: WBC 8.40, Hgb 9.4 L, Hct 28.0 L, Plt Count 245 06/06/21 14:11: Sodium 139, Potassium 4.1, BUN 22 H, Creatinine 3.82 H, Glucose 123 H, Magnesium 2.1, Total Bilirubin 0.5, AST 13 L, ALT 18, Alkaline Phosphata se 76 Imagings Data: EXAM DESCRIPTION: RAD - Chest Single View - 06/06/2021 3:26 pm CLINICAL HISTORY: COUGH COMPARISON: February 21 TECHNIQUE: AP portable chest image was obtained 06/06/2021 3:26 pm . FINDINGS: Interstitial and scattered alveolar opacities are present representing change from prior imaging. Cardiac silhouette is much larger than on the prior study. Vasculature has increased in prominence. Trachea is midline. No measurable pleural effusion and no pneumothorax. No acute bony abnormality seen. No acute aortic findings suspected. IMPRESSION: Cardiomegaly, increased vasculature and increased interstitial and alveolar opacities. Collective findings would favor failure/volume overload. These findings would be unusual in a patient this age. Pneumonia findings including COVID-19 pneumonia would be consideration Conclusions/Impression: ESRD -HD TIW HTN with CKD/ CHF complicated by post HD hypotension -Continue Midodrine -Hold antihypertensives Diastolic CHF, chronic -Low sodium diet DM II with CKD -No sugar diet Moderate malnutrition -Recommend Nepro Anemia in CKD -Consider Retacrit CKD MBD Hypocalcemia -Continue Renvela -Recommend calcitriol Thank you kindly for the consultation Case reviewed with Dr. Blanco
[2021-06-07 10:57] VITALS: BP 93/55; TEMP 99.1
--- NOTE | 2021-06-07 11:07 | P.DS ---
Admission Date: 06/06/21 Discharge Date: 06/07/21 Primary Care Provider: Dr. Sandoval; Nephrology-Dr. Benson Disposition: ROUTINE DISCHARGE Discharge Condition: GOOD Reason for Admission: Hypotension during dialysis Consultations: Nephrology-Dr. Mi Procedures: COVID: negative Chest x-ray: COMPARISON: February 21 TECHNIQUE: AP portable chest image was obtained 06/06/2021 3:26 pm . FINDINGS: Interstitial and scattered alveolar opacities are present representing change from prior imaging. Cardiac silhouette is much larger than on the prior study. Vasculature has increased in prominence. Trachea is midline. No measurable pleural effusion and no pneumothorax. No acute bony abnormality seen. No acute aortic findings suspected. IMPRESSION: Cardiomegaly, increased vasculature and increased interstitial and alveolar opacities. Collective findings would favor failure/volume overload. These findings would be unusual in a patient this age. Pneumonia findings including COVID-19 pneumonia would be consideration Medical Problem List: Hypotension complicated with end-stage renal disease on hemodialysis with renal transplant History of hypertension Diabetes mellitus type 2 GERD Seizure disorder Chronic seasonal allergies Anemia chronic disease with iron deficiency Brief History of Present Illness: 35-year-old female with history of end-stage renal disease on hemodialysis with prior renal transplant and hypertension. Patient presented emergency room after she had low blood pressure during dialysis. She denied any chest pain, shortness of breath, edema. Patient also reported no fever. She was brought in to the hospital for further evaluation and treatment. The ER patient was evaluated. Lab reviewed. Patient given 750 cc of fluid with improvement of blood pressure. Blood pressure stable around 95 systolic. Patient admitted for further evaluation and treatment. Hospital Course: Patient presented with hypotension during dialysis. Patient with end-stage renal disease on hemodialysis with renal transplant in the past. Patient had received yesterday. He was held due to low blood pressure. The patient was sent to the ER for further evaluation. P in the ER patient received IV fluids. Blood pressure improved. Patient denied any chest pain, shortness of breath. The patient was monitored overnight. Nephrology was consulted. No intervention was required. Patient has a history of hypertension. Medications have been held. At discharge recommend to continue to hold Norvasc 5 mg daily, clonidine 0.1 mg daily, and metoprolol XL 50 mg daily. Recommend to monitor her blood pressure daily. Recommend to keep a log of her blood pressures. Recommend to maintain blood pressure less than 130/80. If blood pressures remain above 140/90 then she may need to restart her medication. It is recommended that she start with one medication likely metoprolol then Norvasc then clonidine if required. Recommend follow-up with nephrology within the next 2 days for dialysis and to follow-up this hospitalization. Patient may continue with dialysis every Tuesday, and Tuesday. If patient has increasing edema she could always call for dialysis tomorrow. Case discussed in detail with nephrology. Patient with diabetes mellitus type 2. Overall stable. Patient will continue with her current regimen. Continue with diabetic diet. Recommend to maintain blood sugar less than 140 fasting and less than 200 after meals. Recommend hemoglobin A1c every 3 months to monitor her progress. Recommend follow-up with PCP to further monitor and address. Patient with history of GERD. At discharge she will continue with Pepcid 40 mg daily. Patient with history of seizure disorder. At discharge she will continue with Keppra 250 mg 1 pill twice daily and gabapentin 100 mg daily. Patient with chronic seasonal allergies. Patient may continue with Zyrtec 10 mg daily and nasal spray as needed. As mentioned above patient with end-stage renal disease on hemodialysis. At discharge patient will continue with sevelamer 1600 mg 1 pill twice daily and cinacalcet 60 mg daily. Future medications would not be renally dosed. Recommend no further use of nonsteroidal anti-inflammatories. Follow-up with dialysis every Tuesday, and Tuesday. Continue with above recommendations. Patient with iron deficiency anemia and of chronic disease. At discharge we will continue with iron supplementation 325 mg 1 pill 3 times a day. Patient with hypertension. As mentioned above recommend to hold her Norvasc, clonidine and metoprolol due to low blood pressure. Continue with above recom mendations. Vital Signs/Physical Exam: Temp Pulse Resp BP Pulse Ox 99.1 F 75 24 H 93/55 L 97 06/07/21 10:57 06/07/21 10:57 06/07/21 10:57 06/07/21 10:57 06/07/21 10:57 General: Alert, In no apparent distress, Oriented x3, Cooperative HEENT: Atraumatic Neck: Supple Respiratory: Clear to auscultation bilaterally, Normal air movement Cardiovascular: Normal pulses, Regular rate/rhythm Gastrointestinal: Normal bowel sounds, No tenderness, No masses, No rebound, No guarding Musculoskeletal: No erythema, No tenderness, No warmth Integumentary: No tenderness/swelling, No erythema, No warmth, No cyanosis Neurological: Normal speech, Normal strength at 5/5 x4 extr, Normal tone, Normal affect Laboratory Data at Discharge: WBC 5.00 K/uL (4.3-10.9) D 06/07/21 05:17 Hgb 10.0 g/dL (12.0-15.0) L 06/07/21 05:17 Hct 30.6 % (36.0-45.0) L 06/07/21 05:17 Plt Count 275 K/uL (152-406) 06/07/21 05:17 PT 12.7 SECONDS (9.5-12.5) H 06/06/21 14:11 INR 1.10 06/06/21 14:11 Sodium 140 mmol/L (136-145) 06/07/21 05:17 Potassium 4.8 mmol/L (3.5-5.1) 06/07/21 05:17 BUN 32 mg/dL (7-18) H 06/07/21 05:17 Creatinine 5.51 mg/dL (0.55-1.3) H* D 06/07/21 05:17 Glucose 86 mg/dL (74-106) 06/07/21 05:17 Magnesium 2.5 mg/dL (1.8-2.4) H 06/07/21 05:17 Total Bilirubin 0.5 mg/dL (0.2-1.0) 06/06/21 14:11 AST 13 U/L (15-37) L 06/06/21 14:11 ALT 18 U/L (12-78) 06/06/21 14:11 Alkaline Phosphatase 76 U/L (45-117) 06/06/21 14:11 Home Medications: Cetirizine HCl [All Day Allergy Relief] 10 mg PO DAILY 12/02/20 Cinacalcet HCl 60 mg PO DAILY 12/02/20 Clobetasol [Temovate Cream 0.05%*] 2 ok TOP BID PRN 12/02/20 Ferrous Sulfate 325 mg PO TIDWM 12/02/20 Gabapentin 100 mg PO DAILY PRN 12/02/20 sevelamer HCL [Sevelamer HCl] 2 tab PO BID 12/02/20 Azelastine [Astelin 137MCG/Metered Muddy*] 1 sprays NS BID PRN 06/07/21 Famotidine 40 mg PO BEDTIME PRN 06/07/21 Levetiracetam [Keppra] 250 mg PO BID 06/07/21 Mometasone 0.1% [Elocon 0.1% Cream*] 1 appl TP BID 06/07/21 Physician Discharge Instructions: Patient presented with hypotension during dialysis. Patient with end-stage renal disease on hemodialysis with renal transplant in the past. Patient had received yesterday. He was held due to low blood pressure. The patient was sent to the ER for further evaluation. P in the ER patient received IV fluids. Blood pressure improved. Patient denied any chest pain, shortness of breath. The patient was monitored overnight. Nephrology was consulted. No intervention was required. Patient has a history of hypertension. Medications have been held. At discharge recommend to continue to hold Norvasc 5 mg daily, clonidine 0.1 mg daily, and metoprolol XL 50 mg daily. Recommend to monitor her blood pressure daily. Recommend to keep a log of her blood pressures. Recommend to maintain blood pressure less than 130/80. If blood pressures remain above 140/90 then she may need to restart her medication. It is recommended that she start with one medication likely metoprolol then Norvasc then clonidine if required. Recommend follow-up with nephrology within the next 2 days for dialysis and to follow-up this hospitalization. Patient may continue with dialysis every Tuesday, and Tuesday. If patient has increasing edema she could always call for dialysis tomorrow. Case discussed in detail with nephrology. Patient with diabetes mellitus type 2. Overall stable. Patient will continue with her current regimen. Continue with diabetic diet. Recommend to maintain blood sugar less than 140 fasting and less than 200 after meals. Recommend hemoglobin A1c every 3 months to monitor her progress. Recommend follow-up with PCP to further monitor and address. Patient with history of GERD. At discharge she will continue with Pepcid 40 mg daily. Patient with history of seizure disorder. At discharge she will continue with Keppra 250 mg 1 pill twice daily and gabapentin 100 mg daily. Patient with chronic seasonal allergies. Patient may continue with Zyrtec 10 mg daily and nasal spray as needed. As mentioned above patient with end-stage renal disease on hemodialysis. At discharge patient will continue with sevelamer 1600 mg 1 pill twice daily and cinacalcet 60 mg daily. Future medications would not be renally dosed. Recommend no further use of nonsteroidal anti-inflammatories. Follow-up with dialysis every Tuesday, and Tuesday. Continue with above recommendations. Patient with iron deficiency anemia and of chronic disease. At discharge we will continue with iron supplementation 325 mg 1 pill 3 times a day. Patient with hypertension. As mentioned above recommend to hold her Norvasc, clonidine and metoprolol due to low blood pressure. Continue with above recommendations. Diet: Renal Activity: Ad kem Followup: NONE,NONE [Primary Care Provider] - Time spent managing pt's care (in minutes): 55
--- NOTE | 2021-06-08 09:01 | EKG ---
Test Date: 2021-06-06 Test Time: 14:04:39 Speech Assistant: MJ MEASUREMENT RESULTS: Intervals: Rate: 76 VT: 164 QRSD: 80 QT: 416 QTc: 468 [place]: P: 68 VT: 164 QRS: 0 T: 36 INTERPRETIVE STATEMENTS: Normal sinus rhythm Moderate voltage criteria for LVH, may be normal variant Nonspecific ST and T wave abnormality Prolonged QT Abnormal ECG Compared to ECG 02/21/2021 13:26:26 Left ventricular hypertrophy now present ST (T wave) deviation now present Prolonged QT interval now present Sinus tachycardia no longer present Ventricular premature complex(es) no longer present Electronically Signed On 06-08-21 08:57:38 CDT by Veto Yan
== END 2021-06-07 13:48 | disposition home or self-care (01) ==
LOC: ER 13:53 → ERHOLD 17:26
PROVIDERS: ADMIT Family Medicine; ATTEND Family Medicine
DX: I95.3 Hypotension of hemodialysis (principal); I13.2 Hypertensive heart and chronic kidney disease with heart failure and with stage 5 chronic kidney disease, or end stage renal disease; E11.22 Type 2 diabetes mellitus with diabetic chronic kidney disease; N18.6 End stage renal disease; I50.32 Chronic diastolic (congestive) heart failure; D63.1 Anemia in chronic kidney disease; Z99.2 Dependence on renal dialysis; Z94.0 Kidney transplant status; E83.51 Hypocalcemia; D50.9 Iron deficiency anemia, unspecified; E44.0 Moderate protein-calorie malnutrition; Z68.22 Body mass index [BMI] 22.0-22.9, adult; I25.10 Atherosclerotic heart disease of native coronary artery without angina pectoris; K21.9 Gastro-esophageal reflux disease without esophagitis; G40.909 Epilepsy, unspecified, not intractable, without status epilepticus; E21.3 Hyperparathyroidism, unspecified; J30.2 Other seasonal allergic rhinitis; Z79.4 Long term (current) use of insulin; Z20.822 Contact with and (suspected) exposure to COVID-19; Z83.3 Family history of diabetes mellitus
CPT/HCPCS: 36415; 71045; 80048; 80076; 83735; 83880; 84439; 84443; 84484; 85025; 85610; 93005; 96366; 99284; G0378; J1644; J7030; J7050; U0003